=== PATIENT | male | born 1955 | race Caucasian/White ===

== ENCOUNTER 2020-10-28 16:23 | Inpatient (IN) | payer OTHER, MEDICARE, SELFPAY ==
--- NOTE | ~2020-10-28 | XR_ITS ---
XR hand BI arthritis min 3V DATE: 10/29/2020 18:17 INDICATION: Pain and swelling of both hands TECHNIQUE: 4 views of each hand COMPARISON: None FINDINGS: There is right third metacarpophalangeal joint space narrowing and prominent spurring of th e head of the third metacarpal, consistent with osteoarthritis. No fracture, dislocation, periosteal reaction or bone destruction or erosive change of either hand is noted. No chondrocalcinosis. 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
--- NOTE | ~2020-10-28 | MR_ITS ---
EXAMINATION: MR brain/brain stem wo/w con EXAM DATE: 11/01/2020 12:07 INDICATION: chronic thalamic infarct, LUPUS and CLL . TECHNIQUE: Magnetic resonance imaging (MRI) of the brain/brain stem obtained without contrast. Sagit vitaliy T1, axial diffusion, gradient echo (T2*), T1, T2, FLAIR sequences obtained. Patient was then inj ected with 14 cc intravenous Multihance contrast. Axial and coronal postcontrast T1 weighted sequence s obtained. Correlation is made to head CT from yesterday. FINDINGS: There are no areas of restricted diffusion to suggest acute infarction. There is no acute hemorrhage seen on the T2*, a hemosiderin sensitive sequence. No intraparenchymal brain mass lesion. There is mild periventricular and subcortical T2/FLAIR signal hyperintensity, nonspecific but probab ly related to small vessel ischemic disease (microangiopathy). There is mild prominence of the cere bral sulci and ventricles, and moderate cerebellar atrophy. There are no extra-axial collections. Flow voids are seen in the cerebral arteries on the T2-weighted sequences consistent with their expec estuardo patency. The orbits are unremarkable. Soft tissue is unremarkable. There are no areas of abnor mal enhancement on the postcontrast images. No IMPRESSION: 1. No acute intracranial findings. 2. Mild cerebral, moderate cerebellar atrophy. Reviewed, dictated and finalized at location A.
--- NOTE | ~2020-10-28 | XR_ITS ---
EXAMINATION: XR chest 2V EXAM DATE: 10/29/2020 00:33 INDICATION: hyponatremia. TECHNIQUE: Frontal and lateral projections of the chest obtained and reviewed. There is no prior yane dy for comparison. FINDINGS: The lungs are clear. There are no pleural effusions. The cardiomediastinal silhouette is within normal limits. There is no pneumothorax suspected. The bones and soft tissues are unremarkab le. IMPRESSION: No acute cardiopulmonary findings. Reviewed, dictated and finalized at location A.
--- NOTE | ~2020-10-28 | CT_ITS ---
EXAMINATION: CT brain wo con DATE: 10/31/2020 18:57 INDICATION: Altered mental state TECHNIQUE: Computed tomography (CT) of the head was performed without intravenous contrast. The mA wa s adjusted according to patient size. Iterative reconstruction technique was employed. Exam dose: 60 5.33 mGy-cm total exam DLP. COMPARISON: None FINDINGS: There is greater than expected cerebral and cerebellar volume loss is present with atrophy. There is a small chronic lacunar infarct of the left thalamus. No intracranial mass lesion or hemorrhage or recent cerebrovascular accident. No midline shift or mas s effects. No subdural or epidural hematoma. No fracture or bone destruction of the cranial vault. Included paranasal sinuses and mastoid air cell s are normally developed and aerated. IMPRESSION: Greater than expected cerebral and cerebellar volume loss Chronic left thalamic lacunar infarct Reviewed, dictated and finalized at Location A. Reviewed, dictated and finalized at location A.
--- NOTE | ~2020-10-28 | US_ITS ---
EXAMINATION: US carotid duplex BI DATE: 11/01/2020 11:50 INDICATION: Infarct of left thalamus. TECHNIQUE: Grayscale, color Doppler, and pulsed Doppler images of the cervical carotid arteries were obtained. The degree of vessel stenosis is placed in one of the following categories: normal, <50%, 5 0-69%, >=70% but less than near-occlusion, near-occlusion, or total occlusion. Note that percent sten osis relative to normal distal artery lumen diameter is indirectly measured from velocity measurement s as described by Jayme, et al. Radiology 2003; 229:340-346. COMPARISON: None. FINDINGS: RIGHT: The right common carotid artery (CCA) peak systolic velocity (PSV) is 76 cm/s. The right internal car otid artery (ICA) PSV is 73 cm/s. The right ICA end-diastolic velocity (EDV) is 23 cm/s. The right IC A/CCA PSV ratio is 1.0. Grayscale and color Doppler images yield an estimate of <50% diameter reducti on from plaque in the ICA. There is antegrade flow in the right vertebral artery. LEFT: The left CCA PSV is 77 cm/s. The left ICA PSV is 72 cm/s. The left ICA EDV is 19 cm/s. The left ICA/C CA PSV ratio is 0.9. Grayscale and color Doppler images yield an estimate of <50% diameter reduction from plaque in the ICA. There is antegrade flow in the left vertebral artery. IMPRESSION: 1. <50% stenosis in the right internal carotid artery. 2. <50% stenosis in the left internal carotid artery. Reviewed, dictated and finalized at location A.
[2020-10-28 16:35] VITALS: BP 120/76; PULSE 95; RESP 18; TEMP 37.1; O2SAT 98
[2020-10-28 21:36] VITALS: BP 138/86; PULSE 66; RESP 16; O2SAT 100
[2020-10-28 22:21] LABS: Hemoglobin 11.5 g/dL (14.0-18.0); Mean Corpuscular HGB Conc 32.9 g/dl (32-36); Mean Corpuscular Volume 88.4 fl (80-100); Mean Platelet Volume 9.1 fl (7.4-10.4); Platelet Count Result 225 k/mm3 (150-375); Red Blood Count 3.96 M/mm3 (4.6-6.20); White Blood Count 21.8 K/mm3 (4.5-10.0)
[2020-10-28 22:28] LABS: Add Urine Microscopic? YES; Appearance Urine Clear (Clear); Bacteria Urine Trace /hpf; Bilirubin Urine Negative (Negative); Blood Urine Negative (Negative); Color Urine Amber (Yellow); Glucose Urine UA Negative (Negative); Ketones Urine Trace mg/dL (Negative); Leukocyte Esterase Ur Negative LEU/UL (Negative); Mucus Urine Rare /lpf; Nitrate Urine Negative (Negative); Protein Urine 1+ mg/dL (Negative); RBC Urine 0-2 /hpf (0-2); Specific Grav Ur 1.021 (1.001-1.035); WBC Urine 0-3 /hpf
--- NOTE | 2020-10-28 22:48 | PC.NURSE ---
Called lab and spoke to Huong to add on Uric [id number]
--- NOTE | 2020-10-28 22:58 | ED.GENADULT ---
HPI - General Adult General Chief complaint: Unspecified Stated complaint: achy, rash, dec appt, recent dx CLL Time Seen by Provider: 10/28/20 21:31 Source: patient History of Present Illness HPI narrative: Patient is a 65 y/o male complaining of diffuse joint ache starting several months ago. He describes his pain aching and rates it as 8/10. There is no alleviating or exacerbating factor. He has some erythematous area on his head, chest and back. He was recently diagnosed with CLL about 5 months ago. He called his doctor's office today and was told to come to ED for full work up. Related Data Home Medications Medication Instructions Recorded Confirmed allopurinol 100 mg PO DAILY 10/29/20 10/29/20 Allergies Allergy/AdvReac Type Severity Reaction Status Date / Time No Known Allergies Allergy Verified 10/28/20 21:45 Review of Systems Constitutional: Constitutional: Denies chills, Denies fever(s), Denies headache(s) and Denies weakness Eyes: Eyes: Denies blurry vision ENT: Denies headache(s) and Denies neck pain Cardiovascular: Cardiovascular: Denies chest pain and Denies dyspnea Respiratory: Respiratory: Denies cough and Denies dyspnea Gastrointestinal: Gastrointestinal: Denies abdominal pain, Denies diarrhea, Denies nausea and Denies vomiting Genitourinary: Genitourinary: Denies hematuria and Denies dysuria Musculoskeletal: Musculoskeletal: Denies back pain, Reports myalgias and Denies neck pain Integumentary/Breasts: Skin/Breast: Reports erythema (on head, chest and back) Neurologic: Denies headache(s) and Denies weakness [facility] Past Medical History Medical History Family hx of colon cancer Family History Family History Father Alcoholism Carcinoma of colon Hypertension Family hx of colon cancer Mother Diabetes mellitus Heart disease Glaucoma Hypertension Thyroid disease Sibling Diabetes mellitus Alcoholism Lymphoma Glaucoma Hypertension Thyroid disease Cerebrovascular accident Social History Social History Smoking status: Never smoker Tobacco type: smokeless tobacco Smokeless tobacco user: chewing tobacco Alcohol intake: current Drinks per week: 6 Substance use: never Gender identity (if verbalized by the patient): Male Spiritual care concerns: No Exam Const: General: no acute distress and well developed Orientation/consciousness: oriented to person, oriented to place, oriented to time and patient oriented x3 HENMT: Head: normocephalic Ears: external ears normal General nose exam: Normal external nose present Eyes: General: appearance normal, both eyes and all related structures Conjunctivae: conjunctivae normal Neck: Neck: normal visual inspection and full ROM Chest: Chest palpation & inspection: normal inspection of the chest and no tenderness Resp: Effort & Inspection: normal respiratory effort Auscultation: clear to auscultation bilaterally Cardio: Rate: regular rate Rhythm: regular rhythm GI: GI Palp: No abdominal tenderness and Yes Soft to palpation Skin: General skin exam: normal color, turgor normal and erythema (on face, chest and back) Neuro: General: oriented to person, oriented to place, oriented to time and patient oriented x3 Cognition (Neuro): normal cognition Extrem: General: normal to inspection, full ROM and no pedal edema Psych: Appearance: grossly normal Mental Status: mental status grossly normal Affect: normal affect Course Consultations Consultation #1: Discussed with Dr. Luis, who agrees to admit. Date: 10/29/20 Time: 00:48 Vital Signs Vital signs: Vital Signs Temperature 37.1 C 10/28/20 16:35 Pulse Rate 95 10/28/20 16:35 Respiratory Rate 18 10/28/20 16:35 Blood Pressure 120/76 10/28/20 16:35 Pulse Oximetry 98 10/28/20 1
[2020-10-28 23:09] LABS: Alanine Aminotransferase 29 U/L (4-50); Albumin Level 2.8 g/dL (3.5-5.1); Alkaline Phosphatase 70 U/L (38-126); Anion Gap 4 mmol/L (8-16); Aspartate Amino Transferase 55 U/L (17-59); Bilirubin,Total 0.6 mg/dL (0.2-1.3); Blood Urea Nitrogen 15 mg/dL (9-20); Calcium 8.3 mg/dL (8.4-10.2); Carbon Dioxide 28 mmol/L (22-30); Chloride 93 mmol/L (98-107); Estimated CRCL calculation 94 ml/min; Estimated Glomerular Filt Rate > 60; Glucose 123 mg/dL (65-110); Potassium 4.2 mmol/L (3.4-5.0); Sodium 125 mmol/L (137-145)
[2020-10-28 23:18] LABS: Uric Acid 3.7 mg/dL (3.5-8.5)
[2020-10-28 23:22] LABS: Band Neutrophils Percent 2 % (0-6); Lymphocytes Absolute Manual 13.08 K/mm3 (1.1-4.5); Monocytes Absolute Manual 0.43 K/mm3 (0.1-0.90); Monocytes Percent Manual 2 % (3-9); Neutrophils Absolute Manual 8.28 K/mm3 (1.3-6.7); Neutrophils Percent Manual 36 % (46-73); Platelet Estimate Adequate (Adequate); Total Cells Counted 100
[2020-10-28 23:23] LABS: Poikilocytosis 1+ (NORMAL); Smudge Cells MODERATE
[2020-10-28 23:36] VITALS: BP 146/85; PULSE 75; RESP 18; O2SAT 100
[2020-10-29] VITALS (112 sets, daily range): BP systolic 149–184; BP diastolic 71–89; PULSE 70–111; RESP 16–33; TEMP 36.4–38.1; O2SAT 95–100; BMI 24.7
--- NOTE | 2020-10-29 00:26 | PC.NURSE ---
Pt to radiology via stretcher at this time.
[2020-10-29] MEDS: SODIUM CHLORIDE 0.9% IV 1,000 ML 100 ML IV CONT ×2 (04:45→14:00)
--- NOTE | 2020-10-29 08:05 | PC.NURSE ---
Pt placed on hospital bed for comfort, quality assurance monitor final in place, assited to bathroom, ambulatory with assist x1.
--- NOTE | 2020-10-29 08:08 | PC.NURSE ---
Called lab per ED charge order about phlebotomy not collecting labs ordered at 0500. Per lab we're like really really short and have no staff and no one to draw and they're probably no even logged in, I'll try and call them. EPD Charge aware.
--- NOTE | 2020-10-29 08:10 | PC.NURSE ---
Updated pt's on plan of care.
--- NOTE | 2020-10-29 09:40 | PM.IMHP ---
H&P: HPI History of Present Illness Date/Time: 10/29/20 09:40 Kalen is a 65 year old gentleman admitted with diffuse joint aching in his hands, this started several months ago, diagnosed with CLL in May 2020, and monitoring labs with Oncologist on regular basis. He has also been sleeping a lot more since July, but much more since this last week. His PCP Dr. Millan instructed him to go to the ED for full work up. Patient has been drinking more water than usual recently, as he has been trying to wean from the beers that he typically drinks. Approximately a year ago he would drink 24 beers a day, and then about a month ago he weaned to 6 beers a day, in the last 3 days he has been down to about 3 beers a day. He has not been eating well and has not had a good appetite. The combination of chronic alcohol use, recent increase in free water consumption, paired with no appetite and very little eating or oral intake, has led to low sodium levels. Continue with NaCl IVFs, encourage oral intake, changed to regular diet, recheck sodium level later today, if sodium level drops further will consult Entomology Teacher. He was recently diagnosed with CLL and reports having skin lesions that developed in recent weeks. They do not itch or hurt him. They are not bleeding or inflamed or pus/fluid filled. They are found along the sides of his face at his hair line, on the upper anterior chest, and on his back. He has been seeing an Oncologist on a regular basis. I have ordered Eucerin to be applied to skin lesions. He has been having chronic hand swelling, pain to his hands, and tingling in his hands. Tried carpal tunnel braces, but stated they caused more pain after wearing than he has if he does nothing. 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 His PCP Dr. Millan has referred Kalen to a video control engineer. His 2nd toe on the right foot has a small superficial abscess that his was very concerned was MRSA. I have ordered a culture of that small abscess, ordered wound care daily with bacitracin and clean/dry dressing. His uric acid level was elevated in May 2020, his PCP diagnosed him with gout, started him on Allopurinol, and his uric acid level is now WNL at 3.7 at this admission. He is losing weight and states that he just does not have an appetite. His feels that he may be depressed as well. I advised that he speak with his Oncologist regarding an appetite stimulator medication and/or his PCP for discussion and/or anti-depressant medication. He may benefit from Megace and/or Lexapro, but will need chcf follow up and monitoring by his PCP on those medications. Chief Complaint: arthralgias, hyponatremia, leukocytosis Review of Systems Constitutional: Constitutional: Reports body ache(s), Denies chills, Reports fatigue, Denies fever(s), Denies headache(s), Reports lethargy and Denies weakness Eyes: Eyes: Denies blurry vision ENT: Reports Normal hearing present, Denies headache(s), Denies epistaxis and Denies neck pain Cardiovascular: Cardiovascular: Denies chest pain, Denies pedal edema, Denies leg edema, Denies lightheadedness and Denies dyspnea Respiratory: Respiratory: Denies chest congestion, Denies cough, Denies hemoptysis, Denies dyspnea, Denies dyspnea on exertion and Denies wheezing Gastrointestinal: Gastrointestinal: Denies abdominal pain, Denies melena, Denies bloating, Denies constipation, Denies diarrhea, Denies nausea, Denies vomiting and Denies hematemesis Genitourinary: Genitourinary: Denies hematuria and Denies dysuria Musculoskeletal: Musculoskeletal: Denies back pain, Reports myalgias, Reports arthralgias, Reports joint swelling, Denies neck pain and Reports stiffness Integumentary/Breasts: Skin/Breast: Reports erythema (on head, chest and back), Reports rash and Reports wounds (2nd to
--- NOTE | 2020-10-29 10:51 | PC.NURSE ---
dAUGHTER AT BEDSIDE, FEEDING PT DANIEL.
--- NOTE | 2020-10-29 11:57 | PC.NURSE ---
Contacted hospitalist group to speak with Tere about pt home medication per pt and family request.
--- NOTE | 2020-10-29 12:45 | PC.NURSE ---
Called Tere hospitalist assigned to pt again, no answer, left message to call back to ed for home medication orders. Also noted that pt sodium has decreased again and pt bp is now elevated. Awaiting call back.
[2020-10-29 12:54] LABS: Anion Gap 7 mmol/L (8-16); Blood Urea Nitrogen 10 mg/dL (9-20); Calcium 7.8 mg/dL (8.4-10.2); Carbon Dioxide 26 mmol/L (22-30); Chloride 91 mmol/L (98-107); Estimated CRCL calculation 111 ml/min; Estimated Glomerular Filt Rate > 60; Glucose 109 mg/dL (65-110); Potassium 4.1 mmol/L (3.4-5.0); Sodium 124 mmol/L (137-145)
--- NOTE | 2020-10-29 13:59 | ADMGEN ---
This patient, Kalen Valle, was admitted to Virtual Bed 3rd Floor-2. Pt being boarded in ED room 7. Patient/family oriented to hospital policies and general routines including ID bracelet, bed and alarms, visiting hours, pain management, procedures, bathroom and other care routines, personal items, smoking policy, room service/diet, and visiting hours. Information on how to activate the Rapid Response Team has been discussed. Patient/Family are encouraged to report perceived risks to care and to ask questions if they do not understand what they are told or what they should do.
--- NOTE | 2020-10-29 14:00 | PC.NURSE ---
Spoke with Hospitalist Tere at this time, she has given order for repeat BMP at 1800 today. Per if sodium drops at all to place order for Bar Finish Operator consult. also states to give pt bag of chips and soda.
--- NOTE | 2020-10-29 14:10 | PC.NURSE ---
PT PROVIDED CHIPS AND A SODA PER MD ORDER.
--- NOTE | 2020-10-29 14:48 | PC.NURSE ---
mEAL TRAY PROVIDED.
--- NOTE | 2020-10-29 14:49 | PC.NURSE ---
AWAITING METOPROLOL DOSE FROM PHARMACY FOR PT BP MED DOSE TODAY.
--- NOTE | 2020-10-29 15:21 | PC.NURSE ---
SPOKE WITH KATE ABOUT PT METOPROLOL, STATES SHE WILL TUBE IT NONI. FAMILY BACK AT BEDSIDE.
[2020-10-29] MEDS: METOPROLOL SUCCINATE EXT REL 25 MG TABCR PO (15:36)
--- NOTE | 2020-10-29 15:37 | PC.NURSE ---
Tere with hospitalist at bedside.
--- NOTE | 2020-10-29 17:05 | PC.NURSE ---
This patient, Kalen Valle, was admitted to [facility] Surg Room 323-01. Patient/family oriented to hospital policies and general routines including ID bracelet, bed and alarms, visiting hours, pain management, procedures, bathroom and other care routines, personal items, smoking policy, room service/diet, and visiting hours. Information on how to activate the Rapid Response Team has been discussed. Patient/Family are encouraged to report perceived risks to care and to ask questions if they do not understand what they are told or what they should do.
[2020-10-29 19:02] LABS: Anion Gap 0 mmol/L (8-16); Blood Urea Nitrogen 11 mg/dL (9-20); Calcium 7.8 mg/dL (8.4-10.2); Carbon Dioxide 30 mmol/L (22-30); Chloride 97 mmol/L (98-107); Estimated CRCL calculation 94 ml/min; Estimated Glomerular Filt Rate > 60; Glucose 105 mg/dL (65-110); Magnesium 1.3 mg/dL (1.6-2.3); Phosphorus 3.1 mg/dL (2.5-4.5); Potassium 4.3 mmol/L (3.4-5.0); Sodium 127 mmol/L (137-145)
[2020-10-29 19:07] LABS: Alanine Aminotransferase 30 U/L (4-50); Albumin Level 2.7 g/dL (3.5-5.1); Alkaline Phosphatase 74 U/L (38-126); Anion Gap 4 mmol/L (8-16); Aspartate Amino Transferase 59 U/L (17-59); Bilirubin,Total 0.4 mg/dL (0.2-1.3); Blood Urea Nitrogen 11 mg/dL (9-20); Calcium 7.8 mg/dL (8.4-10.2); Carbon Dioxide 27 mmol/L (22-30); Chloride 96 mmol/L (98-107); Estimated CRCL calculation 94 ml/min; Estimated Glomerular Filt Rate > 60; Glucose 106 mg/dL (65-110); Iron 26 ug/dL (49-181); Potassium 4.3 mmol/L (3.4-5.0); Sodium 127 mmol/L (137-145)
[2020-10-29 19:23] LABS: Vitamin D 25 Hydroxy 30.9 ng/mL
[2020-10-29 20:17] LABS: Folic Acid 16.8 ng/mL (2.76->20); Vitamin B12 > 1000.0 pg/mL (239-931)
[2020-10-29] MEDS: MAGNESIUM SULF 4 GM/WATER100ML 4 GM/100 ML BAG IVPB (20:38)
[2020-10-30] MEDS: SODIUM CHLORIDE 0.9% IV 1,000 ML 100 ML IV CONT (05:06)
[2020-10-30 06:00] VITALS: BP 158/74; PULSE 82; RESP 20; TEMP 37.4; O2SAT 95
[2020-10-30 06:04] LABS: Basophils Percent Auto 0.1 % (0.2-1.2); Eosinophils Percent Auto 0.1 % (0-4.4); Hematocrit 34.1 % (42.0-52.0); Immature Granulocyte Absolute 0.06 K/mm3 (0.00-0.031); Immature Granulocyte Percent A 0.3 % (0-0.5); Lymphocytes Absolute Auto 12.43 K/mm3 (0.9-3.2); Lymphocytes Percent Auto 68.2 % (18.3-44.2); Mean Corpuscular HGB Conc 32.3 g/dl (32-36); Mean Corpuscular Hemoglobin 28.4 pg (26-34); Mean Corpuscular Volume 88.1 fl (80-100); Monocytes Absolute Auto 2.2 K/mm3 (0.1-0.6); Monocytes Percent Auto 12.1 % (2.6-8.5); Neutrophils Absolute Auto 3.5 K/mm3 (1.3-6.7); Neutrophils Percent Auto 19.2 % (45.5-73.1); Nucleated Red Blood Cells Absolute Auto 0.1 K/mm3 (0.0-0.012); Nucleated Red Blood Cells Perc 0.7 % (0.0-0.2); Platelet Count Result 209 k/mm3 (150-375); Red Blood Count 3.87 M/mm3 (4.6-6.20); White Blood Count 18.2 K/mm3 (4.5-10.0)
[2020-10-30 06:37] LABS: Alanine Aminotransferase 26 U/L (4-50); Albumin Level 2.5 g/dL (3.5-5.1); Alkaline Phosphatase 56 U/L (38-126); Anion Gap 3 mmol/L (8-16); Aspartate Amino Transferase 51 U/L (17-59); Bilirubin,Total 0.7 mg/dL (0.2-1.3); Blood Urea Nitrogen 9 mg/dL (9-20); Calcium 7.1 mg/dL (8.4-10.2); Carbon Dioxide 27 mmol/L (22-30); Chloride 97 mmol/L (98-107); Estimated CRCL calculation 111 ml/min; Estimated Glomerular Filt Rate > 60; Glucose 115 mg/dL (65-110); Magnesium 1.7 mg/dL (1.6-2.3); Potassium 3.9 mmol/L (3.4-5.0); Sodium 127 mmol/L (137-145)
[2020-10-30 08:00] VITALS: BP 156/67; PULSE 74; PULSE 78; RESP 16; TEMP 37.4; O2SAT 94
[2020-10-30] MEDS: POLYSACCHARIDE IRON COMPLEX 150 MG CAPSULE PO (08:21)
[2020-10-30] MEDS: BACITRACIN/POLYMYXIN B OINT 15 GM TUBE 1 APPLIC TOPICAL (08:23)
[2020-10-30 11:07] VITALS: BMI 24.7
[2020-10-30 11:13] LABS: CRP 4.4 mg/dL (<1.0)
[2020-10-30] MEDS: EUCERIN CREAM 120 GM JAR 1 APPLIC TOPICAL (11:56)
[2020-10-30] MEDS: MELOXICAM 7.5 MG TABLET 15 MG PO (11:56)
[2020-10-30 12:00] VITALS: BP 164/76; PULSE 78; PULSE 80; RESP 20; TEMP 36.8; O2SAT 98
[2020-10-30 12:32] LABS: Erythrocyte Sedimentation Rate 100 mm/hr (0-20)
--- NOTE | 2020-10-30 12:48 | PDONCCN ---
HPI - Date of Consult Date/Time: 10/30/20 12:48 Requesting Physician: Carey Cobb PA-C Primary Care Provider: Anup Millan MD - Consult Narrative Reason for consult: Chronic lymphocytic leukemia Narrative: Kalen Valle is a 65 year old male with diagnosis of chronic lymphocytic in [place] me a in May of 2020. He was last seen in the office in August of 2020. Patient now came into the hospital with diffuse musculoskeletal and joint pain. He also developed a rash in his left side of the face back and upper chest without any itching and pain. He denies any fevers chills. He has been eating poorly with no appetite. Labs showed elevated WBC count of 21,000 with hemoglobin of 11.5. Chest x-ray came back negative. Hand x-ray showed osteoarthritis at the right hand. He has being tested for COVID infection and results are pending. Review of Systems - Review of Systems All systems reviewed & are unremarkable except as noted in HPI and bel - Neurologic Reports hearing normal, Reports numbness (bilateral hands), Denies abnormal speech, Denies abnormal gait, Denies behavioral changes, Denies headache(s), Denies weakness [facility] Medical History: Medical History (Last Updated 10/29/20 @ 17:55 by Dayana Heaton NP) Benign hypertension Chronic lymphocytic leukemia dx spring CTS (carpal tunnel syndrome) Elevated lymphocyte count Family hx of colon cancer Gout Impaired fasting glucose Positive CLAUDIA (antinuclear antibody) Prediabetes Family History: Family History (Last Reviewed 10/29/20 @ 17:53 by Dayana Heaton NP) Father Alcoholism Carcinoma of colon Hypertension Family hx of colon cancer Mother Diabetes mellitus Heart disease Glaucoma Hypertension Thyroid disease Sibling Diabetes mellitus Alcoholism Lymphoma Glaucoma Hypertension Thyroid disease Cerebrovascular accident - Social History Social History: Social History (Last Reviewed 10/29/20 @ 17:53 by Dayana Heaton NP) Gender Identity: Gender identity (if verbalized by the patient): Male Alcohol Use: Alcohol intake: current Drinks per week: 6 Substance Use: Substance use: never Others: Spiritual care concerns: No Smoking Status: Smoking status: Never smoker Tobacco type: smokeless tobacco Smokeless tobacco user: chewing tobacco Meds Home Medications Medication Instructions Recorded Confirmed Type metoprolol succinate 25 mg 25 mg PO DAILY #90 tablet 05/28/20 10/29/20 Rx tablet,extended release 24 hr meloxicam 15 mg tablet See Rx Instructions .ROUTE 08/13/20 10/29/20 Rx .COMPLEX #90 tablet allopurinol 100 mg PO DAILY 10/29/20 10/29/20 History Allergies Allergy/AdvReac Type Severity Reaction Status Date / Time No Known Allergies Allergy Verified 10/28/20 21:45 Results - Labs CBC & Chem 7: 10/30/20 05:32 10/30/20 05:32 Labs: Short CBC 10/30/20 Range/Units 05:32 WBC 18.2 H (4.5-10.0) K/mm3 Hgb 11.0 L (14.0-18.0) g/dL Hct 34.1 L (42.0-52.0) % Plt Count 209 (150-375) k/mm3 BMP 10/29/20 10/29/20 10/29/20 08:31 18:28 18:28 Sodium 124 L 127 L 127 L Potassium 4.1 4.3 4.3 Chloride 91 L 97 L 96 L Carbon Dioxide 26 30 27 BUN 10 D 11 11 Creatinine 0.50 L 0.60 L 0.60 L Glucose 109 105 106 Calcium 7.8 L 7.8 L 7.8 L 10/30/20 05:32 Sodium 127 L Potassium 3.9 Chloride 97 L Carbon Dioxide 27 BUN 9 Creatinine 0.50 L Glucose 115 H Calcium 7.1 L Liver Function 10/29/20 10/30/20 Range/Units 18:28 05:32 Total Bilirubin 0.4 0.7 (0.2-1.3) mg/dL AST 59 51 (17-59) U/L ALT 30 26 (4-50) U/L Alkaline Phosphatase 74 56 (38-126) U/L Albumin 2.7 L 2.5 L (3.5-5.1) g/dL Assessment and Plan - Additional Plan Chronic lymphocytic leukemia. Patient was diagnosed recently in May of 2020. He had no indication for treatment. On my examinat
--- NOTE | 2020-10-30 15:24 | PM.IMPN ---
Progress Note: A&P Assessment and Plan (1) Lupus (systemic lupus erythematosus): Code(s): M32.9 - Systemic lupus erythematosus, unspecified Status: Acute Assessment and Plan: Studies back in May are consistent with lupus -patient has a chemical maker appointment with Dr. Shoaib Ngo at [facility] on 12/30/20 -he has taken prednisone in the past which has really improved his arthralgias -I suspect his joint pain is consistent with lupus. His fever and rash could also be a part of this although the rash does not appear to be the typical lupus rash. -spoke with Dr. Ngo who recommended prednisone taper 30 mg x 3 days, 20 mg x 3 days, 10 mg x 3 days (2) Hyponatremia: Code(s): E87.1 - Hypo-osmolality and hyponatremia Status: Acute Assessment and Plan: Last sodium 127 -likely due to excessive free water intake. The states the patient used to drink 6 beers a day in the last few days he has not been drinking any beer but replaced it with water -she does not know exact numbers but throughout the summer on routine labs the patient was also noted to be hyponatremic -looks like he had a normal sodium last May and June -will order urine sodium and osmolality and consult Nephrology -IV fluids stopped at 10:40am and at 3:30pm they were still running at bedside. I notified RN. -consider fluid restriction depending on urine sodium (3) Gout: Qualifiers: Gout site: hand Gout etiology: unspecified cause Chronicity: acute Laterality: unspecified laterality Qualified Code(s): M10.9 - Gout, unspecified Code(s): M10.9 - Gout, unspecified Status: Acute Assessment and Plan: Uric acid level is WNL at 3.7 -No evidence of acute gout on exam (4) Impaired fasting glucose: Code(s): R73.01 - Impaired fasting glucose Status: Acute Assessment and Plan: Patient and aware of patient having diagnosis of pre diabetes and elevated A1c of 6.4 (5) Benign hypertension: Code(s): I10 - Essential (primary) hypertension Status: Acute Assessment and Plan: last bp 164/76 -Continue metorpolol, stop IV fluids (6) Arthralgia: Code(s): M25.50 - Pain in unspecified joint Status: Acute Assessment and Plan: Likely due to lupus -start abx as above -Xray show no bony destruction but does show arthritis -continue meloxicam (7) Chronic lymphocytic leukemia: Code(s): C91.10 - Chronic lymphocytic leukemia of B-cell type not having achieved remission Status: Acute Assessment and Plan: CLL -Ricardo consulted, no indication for tx at this time due to stable labs -he is checking immunoglobulin level (8) CTS (carpal tunnel syndrome): Code(s): G56.00 - Carpal tunnel syndrome, unspecified upper limb Status: Acute Assessment and Plan: continue meloxicam (9) Skin lesions: Code(s): L98.9 - Disorder of the skin and subcutaneous tissue, unspecified Status: Acute Assessment and Plan: Facial rash with fever -keflex started due to immunocompromised state and fever -will need biopsy if does not improve with abx and steroids (10) Person under investigation for COVID-19: Code(s): Z20.822 - Contact with and (suspected) exposure to COVID-19 Status: Acute Assessment and Plan: Pt with cough and fever -PCR pending -vaccinated in apr 2020 (11) Fever: Code(s): R50.9 - Fever, unspecified Status: Acute Assessment and Plan: As above -No PNA or evidence of infection on the UA -blood cx no growth to date -pt has a erythematous spot on his right bunion that does not look infected. Time Spent With Patient Time with patient: 25 - 35 minutes Subjective Date/time seen: 10/30/20 15:24 Interval history: Pt is a 65-year-old male here for fever, hyponatremia and rash. Patient was seen today and state
[2020-10-30 16:00] VITALS: BP 153/65; PULSE 101; PULSE 115; RESP 20; TEMP 37.5; O2SAT 96
--- NOTE | 2020-10-30 16:38 | PM.CNNEP ---
Assessment and Plan Assessment and plan (1) Hyponatremia: Code(s): E87.1 - Hypo-osmolality and hyponatremia Status: Acute Assessment and Plan: suspect multifactorial etiology: - component of beer potomania - recent excessie free water intake - prerenal factors (poor appetite + poor oral intake) - malignancy(?) continue normal saline but d/c if sodium drops any further start free water restriction goal of therapy is a rate of change of 4 - 6mmol/L (but not to exceed 8mmol/L) in 24 hours for completeness, check cortisol, TSH, SPEP and UPEP, and kappa/lamda ratio no need for 3% saline at this time follow trend of repeat sodium levels Will continue to follow. History of Present Illness Reason for Consult Consult date: 10/30/20 Reason for consult: hyponatremia Chief Complaint Chief complaint: Hyponatremia History of Present Illness Narrative: The patient is a 65 year old male with a past medical history as outlined below who presented to [facility] ER due to worsening generalized weakness and fatigue at the advice of his PCP. The patient was recently diagnosed CLL in May of 2000. since that time, he has been noted to be sleeping a lot more than usual and more so in the last week. Due to this change in his condition, he called his primary care physician is thought that with his complex medical history including that recent diagnosis of CLL, he should come to the ER for further evaluation for fear of possible complications of this condition with regard to anemia versus possible progression of disease. Workup and evaluation emergency room demonstrated the patient to be hemodynamically stable and routine blood test demonstrated labs consistent with his known history of CLL with an elevated white blood cell count but his chemistry was significant for a low sodium level of 124. He had no other critical electrolyte abnormalities and his kidney function was well within normal limits. Given his constellation of symptoms and his past medical history as outlined, he was admitted the hospital for further evaluation therapy. Since admission, he has been getting gentle normal saline IV fluids with some improvement in his overall sodium level. Aside from the generalized weakness and fatigue, he does not appear to have any other neurologic sequelae a with regard to his low sodium level in the form of headaches, dizziness, lightheadedness, seizure activity, syncope, or altered mental status. Renal consultation was requested due to his a for mentioned acute hyponatremia. From review of his records, his last sodium prior to this admission in early October of 2020 was 131 millimoles per L. prior to that, his sodium level was in the normal range of 137-141 millimoles per L. on further discussion with the patient, he does admit that he has been drinking more water than usual recently as he has been trying to substitute this for his excessive alcohol intake with regard to be years. He used to drink about 24 beers a day but then cut back to about six beers a day a month ago and the last three days he has been down to three beers a day. He also reports poor oral intake and poor appetite for last several days as well. Currently, at the time my visit, he appears to be in no acute distress. Review of Systems Review of Systems: As per HPI. [facility] Past Medical History Medical History (Updated 11/06/20 @ 17:00 by Anup Millan MD) Benign hypertension Chronic lymphocytic leukemia dx spring CTS (carpal tunnel syndrome) Family hx of colon cancer Gout Impaired fasting glucose Positive CLAUDIA (antinuclear antibody) Prediabetes Family History Family History Father Alcoholism Carcinoma of colon Hypertension Family hx of colon cancer Mother Diabetes mellitus Heart disease Glaucoma Hypertension Th
[2020-10-30] MEDS: ceFAZolin 500 MG in DEXTROSE 5% IN WATER 50 ML 100 MG IVPB ×2 (17:14→21:05)
[2020-10-30] MEDS: predniSONE 20 MG, predniSONE 10 MG 30 MG PO (17:15)
[2020-10-30 17:59] LABS: Alanine Aminotransferase 26 U/L (4-50); Albumin Level 2.5 g/dL (3.5-5.1); Alkaline Phosphatase 56 U/L (38-126); Anion Gap 5 mmol/L (8-16); Aspartate Amino Transferase 56 U/L (17-59); Bilirubin,Total 0.6 mg/dL (0.2-1.3); Blood Urea Nitrogen 10 mg/dL (9-20); Calcium 7.1 mg/dL (8.4-10.2); Carbon Dioxide 26 mmol/L (22-30); Chloride 93 mmol/L (98-107); Estimated CRCL calculation 111 ml/min; Estimated Glomerular Filt Rate > 60; Glucose 180 mg/dL (65-110); Sodium 124 mmol/L (137-145)
[2020-10-30 18:34] LABS: SARS-CoV-2 RNA PCR Negative
[2020-10-30 19:32] LABS: Creatinine Urine 62.6 mg/dL
[2020-10-30 20:00] VITALS: BP 164/86; PULSE 84; PULSE 88; PULSE 89; RESP 18; TEMP 38; O2SAT 94; O2SAT 95
[2020-10-30 20:06] LABS: Sodium Urine Random 106 meq/L
[2020-10-30 21:15] LABS: Sodium 122 mmol/L (137-145)
--- NOTE | 2020-10-30 22:10 | PC.NURSE ---
Called Dr Whyte 2054 Na result of 122,reviewed previous Na at 1730 of 124. Informed of temp this evening 100.4 and scheduled IV antibiotic hung. No new orders.
[2020-10-31] VITALS (11 sets, daily range): BP systolic 145–188; BP diastolic 65–90; PULSE 67–96; RESP 16–20; TEMP 36.3–36.9; O2SAT 95–97
[2020-10-31] MEDS: ceFAZolin 500 MG in DEXTROSE 5% IN WATER 50 ML 100 MG IVPB ×3 (05:20→21:19)
[2020-10-31 06:22] LABS: Hemoglobin 11.2 g/dL (14.0-18.0); Mean Corpuscular HGB Conc 32.9 g/dl (32-36); Mean Corpuscular Hemoglobin 28.9 pg (26-34); Mean Corpuscular Volume 87.9 fl (80-100); Mean Platelet Volume 8.7 fl (7.4-10.4); Platelet Count Result 214 k/mm3 (150-375); Red Blood Count 3.87 M/mm3 (4.6-6.20); White Blood Count 22.5 K/mm3 (4.5-10.0)
[2020-10-31 07:15] LABS: Cortisol Random 5.54 ug/dL
[2020-10-31] MEDS: POLYSACCHARIDE IRON COMPLEX 150 MG CAPSULE PO (08:37)
[2020-10-31] MEDS: predniSONE 20 MG, predniSONE 10 MG 30 MG PO (08:38)
[2020-10-31] MEDS: METOPROLOL SUCCINATE EXT REL 25 MG TABCR PO (08:38)
[2020-10-31] MEDS: BACITRACIN/POLYMYXIN B OINT 15 GM TUBE 1 APPLIC TOPICAL (08:38)
[2020-10-31] MEDS: MELOXICAM 7.5 MG TABLET 15 MG PO (08:38)
[2020-10-31] MEDS: EUCERIN CREAM 120 GM JAR 1 APPLIC TOPICAL (08:42)
[2020-10-31 10:19] LABS: Alanine Aminotransferase 27 U/L (4-50); Albumin Level 2.6 g/dL (3.5-5.1); Alkaline Phosphatase 50 U/L (38-126); Anion Gap 4 mmol/L (8-16); Aspartate Amino Transferase 48 U/L (17-59); Bilirubin,Total 0.4 mg/dL (0.2-1.3); Blood Urea Nitrogen 13 mg/dL (9-20); Calcium 7.7 mg/dL (8.4-10.2); Carbon Dioxide 26 mmol/L (22-30); Chloride 98 mmol/L (98-107); Estimated CRCL calculation 111 ml/min; Estimated Glomerular Filt Rate > 60; Glucose 159 mg/dL (65-110); Potassium 4.2 mmol/L (3.4-5.0); Sodium 128 mmol/L (137-145)
--- NOTE | 2020-10-31 14:32 | PM.PNNEP ---
Progress Note: A&P Assessment and Plan (1) Hyponatremia: Code(s): E87.1 - Hypo-osmolality and hyponatremia Status: Acute Assessment and Plan: suspect multifactorial etiology: - component of beer potomania - recent excessie free water intake - prerenal factors (poor appetite + poor oral intake) - malignancy(?) off normal saline IVFs on free water restriction goal of therapy is a rate of change of 4 - 6mmol/L (but not to exceed 8mmol/L) in 24 hours TSH okay and cortisol lowish (but on steroids already); UPEP/SPEP pending no need for 3% saline at this time follow trend of repeat sodium levels Will continue to follow. Subjective Date/time seen: 10/31/20 14:32 No apparent distress voiced at the time of my visit; no events overnight or earlier this AM; sodium appears to be improving with current interventions/therapy; no other complaints to report. Exam Narrative: General: WD/WN male in NAD Heart: normal S1 and S2; no rub Lungs: clear to auscultation Abdomen: soft, nontender, nondistended, positive bowel sounds Extremities: no cyanosis or clubbing; no edema Skin: warm and dry Objective Data Vital Signs Vital Signs: Vital Signs Temp Pulse Resp BP Pulse Ox 10/31/20 14:00 36.3 C L 83 16 145/65 H 97 10/31/20 12:00 81 10/31/20 10:14 96 10/31/20 08:38 81 10/31/20 08:00 96 10/31/20 06:00 36.6 C 81 16 158/77 H 96 10/31/20 04:00 74 10/31/20 00:00 36.6 C 84 18 158/74 H 95 10/30/20 20:00 38.0 C H 84 18 164/86 H 95 Intake/Output Intake/Output: Intake & Output 10/28/20 10/29/20 10/30/20 10/31/20 23:59 23:59 23:59 23:59 Intake Total 1100 3120 760 Output Total 0 100 600 Balance 1100 3020 160 Meds/Results Medications: Active Medications Generic Name Dose Route Start Last Admin Trade Name Freq PRN Reason Stop Dose Admin Bacitracin/Polymyxin B Sulfate 1 applic 10/30/20 09:00 10/31/20 08:38 Bacitracin/Polymyxin B Oint 15 Gm Tube TOPICAL 1 applic DAILY [facility] Administration Cefazolin Sodium 500 mg/ 50 mls @ 100 mls/hr 10/30/20 15:20 10/31/20 13:38 Dextrose IVPB Infused Q8HR [facility] Infusion Meloxicam 15 mg 10/30/20 10:45 10/31/20 08:38 Meloxicam 7.5 Mg Tablet PO 15 mg DAILY@0800 [facility] Administration Metoprolol Succinate 25 mg 10/30/20 09:00 10/31/20 08:38 Metoprolol Succinate Ext Rel 25 Mg Tabcr PO 25 mg DAILY [facility] Administration Multi-Ingred Cream/Lotion/Oil/Oint 1 applic 10/29/20 09:00 10/31/20 08:42 Eucerin Cream 120 Gm Jar TOPICAL 1 applic DAILY [facility] Administration Pantoprazole Sodium 40 mg 10/31/20 16:30 Pantoprazole 40 Mg Tablet PO QAM [facility] Polysaccharide Iron Complex 150 mg 10/30/20 08:00 10/31/20 08:37 Polysaccharide Iron Complex 150 Mg Capsule PO 150 mg DAILY@0800 [facility] Administration Prednisone 20 mg/ Prednisone 30 mg 10/30/20 15:10 10/31/20 08:38 10 mg PO 30 mg DAILY@0800 [facility] Administration Radiology Results: ITS Impressions Chest X-Ray 10/29/20 06:59 IMPRESSION: No acute cardiopulmonary findings. 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
[2020-10-31 15:38] LABS: Sodium 127 mmol/L (137-145)
--- NOTE | 2020-10-31 16:30 | PM.IMPN ---
Progress Note: A&P Assessment and Plan (1) Lupus (systemic lupus erythematosus): Code(s): M32.9 - Systemic lupus erythematosus, unspecified Status: Acute Assessment and Plan: Studies back in May are consistent with lupus -patient has a office asst appointment with Dr. Shoaib Ngo at [facility] on 12/30/20 -he has taken prednisone in the past which has really improved his arthralgias -I suspect his joint pain is consistent with lupus which is already improving with tx. His fever and rash could also be a part of this although the rash does not appear to be the typical lupus rash. -spoke with Dr. Ngo who recommended prednisone taper 30 mg x 3 days, 20 mg x 3 days, 10 mg x 3 days (2) Hyponatremia: Code(s): E87.1 - Hypo-osmolality and hyponatremia Status: Acute Assessment and Plan: Last sodium 127 -likely due to excessive free water intake. The states the patient used to drink 6 beers a day in the last few days he has not been drinking any beer but replaced it with water -she does not know exact numbers but throughout the summer on routine labs the patient was also noted to be hyponatremic -looks like he had a normal sodium last May and June -urine sodium high -nephrology consulted, appreciate their recommendations. labs have been orderd (3) Gout: Qualifiers: Gout site: hand Gout etiology: unspecified cause Chronicity: acute Laterality: unspecified laterality Qualified Code(s): M10.9 - Gout, unspecified Code(s): M10.9 - Gout, unspecified Status: Acute Assessment and Plan: Uric acid level is WNL at 3.7 -No evidence of acute gout on exam (4) Impaired fasting glucose: Code(s): R73.01 - Impaired fasting glucose Status: Acute Assessment and Plan: Patient and aware of patient having diagnosis of pre diabetes and elevated A1c of 6.4 (5) Benign hypertension: Code(s): I10 - Essential (primary) hypertension Status: Acute Assessment and Plan: last bp 145/65 -Continue metorpolol (6) Arthralgia: Code(s): M25.50 - Pain in unspecified joint Status: Acute Assessment and Plan: Likely due to lupus -continue steroids -Xray show no bony destruction but does show arthritis -continue meloxicam (7) Chronic lymphocytic leukemia: Code(s): C91.10 - Chronic lymphocytic leukemia of B-cell type not having achieved remission Status: Acute Assessment and Plan: CLL -Ricardo consulted, no indication for tx at this time due to stable labs -will check peripheral smear -he is checking immunoglobulin level (8) CTS (carpal tunnel syndrome): Code(s): G56.00 - Carpal tunnel syndrome, unspecified upper limb Status: Acute Assessment and Plan: continue meloxicam (9) Skin lesions: Code(s): L98.9 - Disorder of the skin and subcutaneous tissue, unspecified Status: Acute Assessment and Plan: Facial rash with fever -keflex started due to immunocompromised state and fever -steroids started, will monitor for improvement -spoke with Dr. Davalos who agrees to consult for biopsy. (10) Person under investigation for COVID-19: Code(s): Z20.822 - Contact with and (suspected) exposure to COVID-19 Status: Acute Assessment and Plan: PCR negative, ruled out (11) Fever: Code(s): R50.9 - Fever, unspecified Status: Acute Assessment and Plan: As above -No PNA or evidence of infection on the UA -blood cx no growth to date -pt has a erythematous spot on his right bunion that does not look infected -abx started for rash although unsure if this is the etiology either -could be due to lupus or CLL Subjective Date/time seen: 10/31/20 16:30 Interval history: Pt is a 65-year-old male here for fever, hyponatremia and rash. Patient was seen today and states he feels much better.
[2020-10-31] MEDS: PANTOPRAZOLE 40 MG TABLET PO (17:43)
[2020-11-01] MEDS: ceFAZolin 500 MG in DEXTROSE 5% IN WATER 50 ML 100 MG IVPB ×2 (05:54→14:10)
[2020-11-01 06:00] VITALS: BP 158/83; PULSE 75; RESP 18; TEMP 37; O2SAT 95
[2020-11-01 07:15] LABS: Hematocrit 34.3 % (42.0-52.0); Hemoglobin 10.9 g/dL (14.0-18.0); Mean Corpuscular HGB Conc 31.8 g/dl (32-36); Mean Corpuscular Hemoglobin 28.4 pg (26-34); Mean Corpuscular Volume 89.3 fl (80-100); Mean Platelet Volume 9.1 fl (7.4-10.4); Platelet Count Result 232 k/mm3 (150-375); Red Blood Count 3.84 M/mm3 (4.6-6.20); Red Cell Distribution Width 13.1 % (11.5-14.5); White Blood Count 26.7 K/mm3 (4.5-10.0)
[2020-11-01 07:45] LABS: Anion Gap 5 mmol/L (8-16); Blood Urea Nitrogen 16 mg/dL (9-20); CRP 3.1 mg/dL (<1.0); Calcium 7.7 mg/dL (8.4-10.2); Carbon Dioxide 27 mmol/L (22-30); Chloride 99 mmol/L (98-107); Estimated CRCL calculation 111 ml/min; Estimated Glomerular Filt Rate > 60; Glucose 114 mg/dL (65-110); Potassium 3.6 mmol/L (3.4-5.0); Sodium 131 mmol/L (137-145)
--- NOTE | 2020-11-01 08:21 | WPDCN ---
Assessment and Plan Assessment and plan (1) Lupus (systemic lupus erythematosus): Code(s): M32.9 - Systemic lupus erythematosus, unspecified Status: Acute Assessment and Plan: Excisional skin biopsy at the bedside (2) Chronic lymphocytic leukemia: Code(s): C91.10 - Chronic lymphocytic leukemia of B-cell type not having achieved remission Status: Acute HPI Data of Consult Date/Time: 11/01/20 08:21 Requesting Physician: Carey Cobb PA-C Primary Care Provider: Anup Millan MD Consult Narrative Narrative: Kalen Valle is a 65 year old male Admitted to the hospitalist service with Myalgia, unspecified rash and elevated WBC with lymphocytosis. 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 He also has serology suggesting Lupus. He in vaccinated against Covid-19. I am consulted to take a cutaneous biopsy from the area of the rash. Platelets are normal. [facility] Past Medical History Medical History (Updated 10/30/20 @ 15:35 by Carey Cobb PA-C) Benign hypertension Chronic lymphocytic leukemia dx spring CTS (carpal tunnel syndrome) Family hx of colon cancer Gout Impaired fasting glucose Positive CLAUDIA (antinuclear antibody) Prediabetes Family History Family History Father Alcoholism Carcinoma of colon Hypertension Family hx of colon cancer Mother Diabetes mellitus Heart disease Glaucoma Hypertension Thyroid disease Sibling Diabetes mellitus Alcoholism Lymphoma Glaucoma Hypertension Thyroid disease Cerebrovascular accident Social History Social History Smoking status: Never smoker Tobacco type: smokeless tobacco Smokeless tobacco user: chewing tobacco Alcohol intake: current Drinks per week: 6 Substance use: never Gender identity (if verbalized by the patient): Male Spiritual care concerns: No Meds Home Medications and Allergies Home Medications Medication Instructions Recorded Confirmed Type metoprolol succinate 25 mg 25 mg PO DAILY #90 tablet 05/28/20 10/29/20 Rx tablet,extended release 24 hr meloxicam 15 mg tablet See Rx Instructions .ROUTE 08/13/20 10/29/20 Rx .COMPLEX #90 tablet allopurinol 100 mg PO DAILY 10/29/20 10/29/20 History Allergies Allergy/AdvReac Type Severity Reaction Status Date / Time No Known Allergies Allergy Verified 10/28/20 21:45 Vital Signs Vital Signs - 24 hr 10/31/20 08:38 10/31/20 10:14 10/31/20 12:00 Temperature Pulse Rate 81 81 Respiratory Rate Blood Pressure Pulse Oximetry 96 10/31/20 14:00 10/31/20 16:00 10/31/20 20:00 Temperature 97.4 F L Pulse Rate 83 72 67 Respiratory Rate 16 20 Blood Pressure 145/65 H Pulse Oximetry 97 97 10/31/20 22:00 11/01/20 06:00 Temperature 98.4 F 98.6 F Pulse Rate 67 75 Respiratory Rate 20 18 Blood Pressure 188/90 H 158/83 H Pulse Oximetry 97 95 Results Labs CBC & Chem 7: 11/01/20 06:53 11/01/20 06:53 Labs: Short CBC 11/01/20 Range/Units 06:53 WBC 26.7 H (4.5-10.0) K/mm3 Hgb 10.9 L (14.0-18.0) g/dL Hct 34.3 L (42.0-52.0) % Plt Count 232 (150-375) k/mm3 BMP 10/31/20 10/31/20 11/01/20 06:07 15:08 06:53 Sodium 128 L 127 L 131 L Potassium 4.2 3.6 Chloride 98 99 Carbon Dioxide 26 27 BUN 13 16 Creatinine 0.50 L 0.50 L Glucose 159 H 114 H Calcium 7.7 L 7.7 L Liver Function 10/31/20 Range/Units 06:07 Total Bilirubin 0.4 (0.2-1.3) mg/dL AST 48 (17-59) U/L ALT 27 (4-50) U/L Alkaline Phosphatase 50 (38-126) U/L Albumin 2.6 L (3.5-5.1) g/dL
[2020-11-01] MEDS: MELOXICAM 7.5 MG TABLET 15 MG PO (09:04)
[2020-11-01 09:05] VITALS: PULSE 67
[2020-11-01] MEDS: METOPROLOL SUCCINATE EXT REL 25 MG TABCR PO (09:05)
[2020-11-01] MEDS: predniSONE 20 MG, predniSONE 10 MG 30 MG PO (09:05)
[2020-11-01] MEDS: POLYSACCHARIDE IRON COMPLEX 150 MG CAPSULE PO (09:05)
[2020-11-01] MEDS: BACITRACIN/POLYMYXIN B OINT 15 GM TUBE 1 APPLIC TOPICAL (09:05)
[2020-11-01] MEDS: PANTOPRAZOLE 40 MG TABLET PO (09:05)
[2020-11-01] MEDS: EUCERIN CREAM 120 GM JAR 1 APPLIC TOPICAL (09:05)
[2020-11-01 09:26] LABS: Lymphocytes Absolute Manual 16.82 K/mm3 (1.1-4.5); Monocytes Percent Manual 3 % (3-9); Neutrophils Percent Manual 34 % (46-73); Total Cells Counted 100
[2020-11-01 09:27] LABS: Platelet Estimate Adequate (Adequate)
[2020-11-01 09:28] LABS: Smudge Cells MODERATE
[2020-11-01] MEDS: POTASSIUM CHLORIDE 20 MEQ TABLET 40 MEQ PO (10:14)
[2020-11-01 10:26] VITALS: BP 159/108; PULSE 80; RESP 12; TEMP 36.8; O2SAT 96
--- NOTE | 2020-11-01 10:44 | P.PNNP_ITS ---
Progress Note: A&P Assessment and Plan (1) Hyponatremia: Code(s): E87.1 - Hypo-osmolality and hyponatremia Status: Acute Assessment and Plan: * suspect multifactorial etiology: - component of beer potomania - recent excessive free water intake - prerenal factors (poor appetite + poor oral intake) - malignancy(?) * off normal saline IVFs * on free water restriction * goal of therapy is a rate of change of 4 - 6mmol/L (but not to exceed 8mmol/L) in 24 hours * TSH okay and cortisol lowish (but on steroids already); UPEP/SPEP pending * no need for 3% saline at this time * follow trend of repeat sodium levels Will continue to follow. Subjective Date/time seen: 11/01/20 10:44 No apparent distress to report; no new issues/events overnight or earlier this AM; sodium level continues to improve with conservative therapy; no other complaints voiced at the time of my visit. Exam Narrative: General: WD/WN male in NAD Heart: normal S1 and S2; no rub Lungs: clear to auscultation Abdomen: soft, nontender, nondistended, positive bowel sounds Extremities: no cyanosis or clubbing; no edema Skin: warm and intact Objective Data Vital Signs Vital Signs: Vital Signs Temp Pulse Resp BP Pulse Ox 11/01/20 10:26 36.8 C 80 12 159/108 H 96 11/01/20 09:05 67 11/01/20 06:00 37.0 C 75 18 158/83 H 95 10/31/20 22:00 36.9 C 67 20 188/90 H 97 10/31/20 20:00 67 20 97 10/31/20 16:00 72 Intake/Output Intake/Output: Intake & Output 10/29/20 10/30/20 10/31/20 11/01/20 23:59 23:59 23:59 23:59 Intake Total 1100 3120 1400 270 Output Total 0 100 600 600 Balance 1100 3020 800 -330 Meds/Results Medications: Active Medications Generic Name Dose Route Start Last Admin Trade Name Freq PRN Reason Stop Dose Admin Bacitracin/Polymyxin B Sulfate 1 applic 10/30/20 09:00 11/01/20 09:05 Bacitracin/Polymyxin B Oint 15 Gm Tube TOPICAL 1 applic DAILY [facility] Administration Cefazolin Sodium 500 mg/ 50 mls @ 100 mls/hr 10/30/20 15:20 11/01/20 14:10 Dextrose IVPB 100 mls/hr Q8HR [facility] Administration Magnesium Oxide 400 mg 11/02/20 09:00 Magnesium Oxide 400 Mg Tablet PO DAILY [facility] Meloxicam 15 mg 10/30/20 10:45 11/01/20 09:04 Meloxicam 7.5 Mg Tablet PO 15 mg DAILY@0800 [facility] Administration Metoprolol Succinate 25 mg 10/30/20 09:00 11/01/20 09:05 Metoprolol Succinate Ext Rel 25 Mg Tabcr PO 25 mg DAILY [facility] Administration Miconazole Nitrate 1 applic 11/01/20 21:00 Miconazole 2% Antifungal Ointment 56 Gm TOPICAL HS [facility] Multi-Ingred Cream/Lotion/Oil/Oint 1 applic 10/29/20 09:00 11/01/20 09:05 Eucerin Cream 120 Gm Jar TOPICAL 1 applic DAILY [facility] Administration Pantoprazole Sodium 40 mg 10/31/20 16:30 11/01/20 09:05 Pantoprazole 40 Mg Tablet PO 40 mg QAM [facility] Administration Polysaccharide Iron Complex 150 mg 10/30/20 08:00 11/01/20 09:05 Polysaccharide Iron Complex 150 Mg Capsule PO 150 mg DAILY@0800 [facility] Administration Prednisone 20 mg/ Prednisone 30 mg 10/30/20 15:10 11/01/20 09
--- NOTE | 2020-11-01 10:44 | PM.PNNEP ---
Progress Note: A&P Assessment and Plan (1) Hyponatremia: Code(s): E87.1 - Hypo-osmolality and hyponatremia Status: Acute Assessment and Plan: suspect multifactorial etiology: - component of beer potomania - recent excessive free water intake - prerenal factors (poor appetite + poor oral intake) - malignancy(?) off normal saline IVFs on free water restriction goal of therapy is a rate of change of 4 - 6mmol/L (but not to exceed 8mmol/L) in 24 hours TSH okay and cortisol lowish (but on steroids already); UPEP/SPEP pending no need for 3% saline at this time follow trend of repeat sodium levels Will continue to follow. Subjective Date/time seen: 11/01/20 10:44 No apparent distress to report; no new issues/events overnight or earlier this AM; sodium level continues to improve with conservative therapy; no other complaints voiced at the time of my visit. Exam Narrative: General: WD/WN male in NAD Heart: normal S1 and S2; no rub Lungs: clear to auscultation Abdomen: soft, nontender, nondistended, positive bowel sounds Extremities: no cyanosis or clubbing; no edema Skin: warm and intact Objective Data Vital Signs Vital Signs: Vital Signs Temp Pulse Resp BP Pulse Ox 11/01/20 10:26 36.8 C 80 12 159/108 H 96 11/01/20 09:05 67 11/01/20 06:00 37.0 C 75 18 158/83 H 95 10/31/20 22:00 36.9 C 67 20 188/90 H 97 10/31/20 20:00 67 20 97 10/31/20 16:00 72 Intake/Output Intake/Output: Intake & Output 10/29/20 10/30/20 10/31/20 11/01/20 23:59 23:59 23:59 23:59 Intake Total 1100 3120 1400 270 Output Total 0 100 600 600 Balance 1100 3020 800 -330 Meds/Results Medications: Active Medications Generic Name Dose Route Start Last Admin Trade Name Freq PRN Reason Stop Dose Admin Bacitracin/Polymyxin B Sulfate 1 applic 10/30/20 09:00 11/01/20 09:05 Bacitracin/Polymyxin B Oint 15 Gm Tube TOPICAL 1 applic DAILY [facility] Administration Cefazolin Sodium 500 mg/ 50 mls @ 100 mls/hr 10/30/20 15:20 11/01/20 14:10 Dextrose IVPB 100 mls/hr Q8HR [facility] Administration Magnesium Oxide 400 mg 11/02/20 09:00 Magnesium Oxide 400 Mg Tablet PO DAILY [facility] Meloxicam 15 mg 10/30/20 10:45 11/01/20 09:04 Meloxicam 7.5 Mg Tablet PO 15 mg DAILY@0800 [facility] Administration Metoprolol Succinate 25 mg 10/30/20 09:00 11/01/20 09:05 Metoprolol Succinate Ext Rel 25 Mg Tabcr PO 25 mg DAILY [facility] Administration Miconazole Nitrate 1 applic 11/01/20 21:00 Miconazole 2% Antifungal Ointment 56 Gm TOPICAL HS [facility] Multi-Ingred Cream/Lotion/Oil/Oint 1 applic 10/29/20 09:00 11/01/20 09:05 Eucerin Cream 120 Gm Jar TOPICAL 1 applic DAILY [facility] Administration Pantoprazole Sodium 40 mg 10/31/20 16:30 11/01/20 09:05 Pantoprazole 40 Mg Tablet PO 40 mg QAM [facility] Administration Polysaccharide Iron Complex 150 mg 10/30/20 08:00 11/01/20 09:05 Polysaccharide Iron Complex 150 Mg Capsule PO 150 mg DAILY@0800 [facility] Administration Prednisone 20 mg/ Prednisone 30 mg 10/30/20 15:10 11/01/20 09:05 10 mg PO 30 mg DAILY@0800 [facility] Administration Radiology Results: ITS Impressions Chest X-Ray 10/29/20 06:59 IMPRESSION: No acute cardiopulmonary findings. 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 <50% stenosis in the right internal carotid artery. 2. <50% stenosis in the left internal carotid artery. Brain MRI 11/01/20 12:50 IMPRESSION: 1. No acute intracranial findings. 2. Mild cerebral, moderate cerebellar atrophy. Labs Labs: Laboratory Tests 11/01/20 06
--- NOTE | 2020-11-01 10:55 | PM.DS ---
DS: Admitting Diagnosis Admitting Diagnosis arthralgia, painful and swollen hands, rash, fatigue, CLL, Lupus, hyponatremia DS: Discharge Diagnosis Discharge Diagnosis (1) Lupus (systemic lupus erythematosus): Code(s): M32.9 - Systemic lupus erythematosus, unspecified Status: Acute Assessment and Plan: Studies back in May are consistent with lupus -he has taken prednisone in the past which has really improved his arthralgias -I suspect his joint pain is consistent with lupus which is already improving with steroid tx. - fever and rash could also be a part of Lupus; although the rash does not appear to be the typical lupus rash. -CT brain showed chronic left thalamic lacunar infarcts and greater than normal ceregral and cerebellar volume loss -ordered MRI brain and brain stem:There are no areas of restricted diffusion to suggest acute infarction. There is no acute hemorrhage seen on the T2*, a hemosiderin sensitive sequence. No intraparenchymal brain mass lesion. There is mild periventricular and subcortical T2/FLAIR signal hyperintensity, nonspecific but probably related to small vessel ischemic disease (microangiopathy). There is mild prominence of the cerebral sulci and ventricles, and moderate cerebellar atrophy. There are no extra-axial collections. Flow voids are seen in the cerebral arteries on the T2-weighted sequences consistent with their expected patency. The orbits are unremarkable. Soft tissue is unremarkable. There are no areas of abnormal enhancement on the postcontrast images. 1. No acute intracranial findings.2. Mild cerebral, moderate cerebellar atrophy. - ordered Carotid Doppler US: no stenosis bilaterally. - appreciate Dr. Diaz biopsy of rash today. --patient has a car packer appointment with Dr. Shoaib Ngo at [facility] on 12/30/20 -continue at discharge: Dr. Ngo who recommended prednisone taper 30 mg x 3 days, 20 mg x 3 days, 10 mg x 3 days (2) Hyponatremia: Code(s): E87.1 - Hypo-osmolality and hyponatremia Status: Acute Assessment and Plan: Last sodium 131 -likely due to excessive free water intake. The states the patient used to drink 6 beers a day in the last few days he has not been drinking any beer but replaced it with water -she does not know exact numbers but throughout the summer on routine labs the patient was also noted to be hyponatremic -looks like he had a normal sodium last May and June -urine sodium high -nephrology consulted, appreciate their recommendations. - allopurinol may be contributing to his hyponatremia - held at this time. - not been eating well , not had a good appetite, losing weight, - encourage oral intake, added protein/supplements, discuss appetite stimulator and/or anti-depressant medication with PCP or oncologist - low sodium may be combination of chronic alcohol use, recent increase in free water consumption, paired with no appetite and very little eating or oral intake. (3) Gout: Qualifiers: Chronicity: acute Gout etiology: unspecified cause Gout site: hand Laterality: unspecified laterality Qualified Code(s): M10.9 - Gout, unspecified Code(s): M10.9 - Gout, unspecified Status: Acute Assessment and Plan: His uric acid level was elevated in May 2020 his PCP diagnosed him with gout started him on Allopurinol his uric acid level is now WNL at 3.7 at this admission. -No evidence of acute gout on exam today -continue the allopurinol after prednisone dosing completed, at discharge to continue gout control (4) Impaired fasting glucose: Code(s): R73.01 - Impaired fasting glucose Status: Acute Assessment and Plan: Patient and aware of patient having diagnosis of pre diabetes and elevated A1c of 6.4 patient will need get dietary education and control thru diet (5) Benign hypertension: Code(s): I10 - Essential (primary) hypertension Status: Acute Assessmen
--- NOTE | 2020-11-01 12:56 | W.PM.PROC2 ---
Procedure Note - Detailed Date of Procedure 11/01/20 Pre-op Diagnosis Skin rash Post-op Diagnosis same Procedure Performed Full thickness excisional skin biopsy from the left scapula Surgeon Bautista Diaz MD Anesthesia local Indications Extensive nonpruritic macular rash Description of Procedure Patient verbally consented. He is quite aware of his rash. He lay prone on his bed. I anesthetized a single area on the medial lower scapula on the left side. This is area was prepped with Betadine. A 1 cm full-thickness skin ellipse was incised and sent in formalin to pathology the wound was closed with interrupted 4-0 nylon and a Band-Aid was applied. Patient tolerated this well. The father was marked with the patient's identification and handed to the RN covering the floor at lunch time. Urine Output 600 Drains No Packing No Pathology yes Complications No immediate complications Condition stable Disposition floor
[2020-11-01 15:25] VITALS: BP 145/83; PULSE 72; RESP 14; TEMP 36.8; O2SAT 97
[2020-11-02 11:07] LABS: Vitamin B6 17.5 ng/mL (2.1-21.7)
[2020-11-03 04:38] LABS: Albumin 2.3 g/dL (3.8-4.8); Alpha 1 Globulin 0.4 g/dL (0.2-0.3); Alpha 2 Globulin 0.7 g/dL (0.5-0.9); Beta 1 Globulin 0.3 g/dL (0.4-0.6); Gamma Globulin 1.2 g/dL (0.8-1.7); Protein, Total 5.2 g/dL (6.1-8.1)
[2020-11-03 17:41] LABS: Kappa\\Lambda Light Chains 0.72 (0.26-1.65); Lambda Light Chain 97.9 mg/L (5.7-26.3)
[2020-11-05 05:48] LABS: Creatinine, Random Urine 27 mg/dL (20-320); Total Protein/Creatinine Ratio 333 mg/g creat (22-128)
--- NOTE | 2020-11-08 13:02 | PC.NURSE ---
Skin bx shows superficial acute dermatitis with benign acute ulcer. GMS stain for fungus is negative. JOHN Harvey aware.
== END 2020-11-01 18:25 | disposition home or self-care (01) | DRG 607 ==
LOC: ANHED 23:10 → ANH3MEDSUR 10-29 03:07
PROVIDERS: Internal Medicine Nephrology; Physician Assistant; Admitting Provider Internal Medicine; Emergency Provider Emergency Medicine; PCP Family Medicine; Visit Provider Nurse Practitioner
DX: R21 Rash and other nonspecific skin eruption (principal); E87.1 Hypo-osmolality and hyponatremia; L02.611 Cutaneous abscess of right foot; C91.10 Chronic lymphocytic leukemia of B-cell type not having achieved remission; M32.9 Systemic lupus erythematosus, unspecified; B37.2 Candidiasis of skin and nail; Z20.822 Contact with and (suspected) exposure to COVID-19; M10.9 Gout, unspecified; R73.01 Impaired fasting glucose; G56.00 Carpal tunnel syndrome, unspecified upper limb; I10 Essential (primary) hypertension; F17.220 Nicotine dependence, chewing tobacco, uncomplicated
CPT/HCPCS: 36415; 70450; 70553; 71046; 73130; 80048; 80053; 81001; 82306; 82533; 82570; 82607; 82746; 83540; 83735; 83883; 83930; 83935; 84100; 84155; 84156; 84165; 84166; 84207; 84295; 84300; 84443; 84550; 85025; 85027; 85060; 85652; 86140; 87040; 87070; 87205; 88305; 88312; 93880; 96360; 96361; 96365; 96366; 97161; 97165; 99285; A9270; A9577; C9803; G0378; J0690; J3475; J7030; J7512; U0003; U0005

== ENCOUNTER 2020-11-21 12:14 | Emergency (ER) | payer OTHER, SELFPAY ==
--- NOTE | ~2020-11-21 | CT_ITS ---
EXAMINATION: CTA chest PE abdomen pel DATE: 11/21/2020 15:22 INDICATION: Chest pain, left upper quadrant pain. TECHNIQUE: Computed tomography angiography (CTA) of the chest was performed with 100 mL Omnipaque-350 intravenous contrast timed to evaluate the pulmonary arteries. Coronal maximum intensity projection 3D-reconstructions were created by the technologist. Automated exposure control and iterative reconst ruction technique were employed. Exam dose: 830.90 mGy-cm total exam DLP. COMPARISON: 11/21/2020 portable AP chest FINDINGS: There is diagnostic contrast enhancement of the pulmonary arteries. No pulmonary embolism i s detected. Cardiomegaly. No pericardial effusion. Coronary artery atherosclerotic calcifications. No thoracic ao rtic dissection. No hilar or mediastinal mass lesion or lymphadenopathy. No pulmonary infiltrate or consolidation or pulmonary mass lesion is evident Old healed lower right posterior rib fractures. Scoliosis and degenerative spurring of the thoracic s pine. Degenerative spurring of the lumbar spine. No suspicious osteolytic or osteoblastic lesions. IMPRESSION: No evidence of pulmonary embolism Reviewed, dictated and finalized at [facility]. Reviewed, dictated and finalized at location [facility].
--- NOTE | ~2020-11-21 | XR_ITS ---
EXAMINATION: XR chest 1V portable INDICATION: Left-sided chest pain TECHNIQUE: Portable AP chest at 1246 hours COMPARISON: 10/29/2020 FINDINGS: The lungs are free of acute opacities. There is no pleural effusion or pneumothorax. The ca rdiomediastinal silhouette is normal. IMPRESSION: 1. No acute cardiopulmonary abnormality. Reviewed, dictated and finalized at location [facility].
[2020-11-21 12:18] VITALS: BP 141/69; PULSE 80; RESP 16; TEMP 37; O2SAT 100
[2020-11-21 12:37] VITALS: BP 141/69; PULSE 80; RESP 18; TEMP 37; O2SAT 98
--- NOTE | 2020-11-21 12:47 | ECG_ITS ---
Measurements Intervals Fabius Rate: 73 P: -42 NM: 143 QRS: -7 QRSD: 93 T: 21 QT: 380 QTc: 419 Interpretive Statements SINUS RHYTHM BASELINE ARTIFACT- I, II NORMAL ECG Electronically Signed On 11-21-2020 13:27:03 CDT by Amrik Meraz D.O.
--- NOTE | 2020-11-21 13:15 | ED.GENADULT ---
HPI - General Adult General Chief complaint: Upper Respiratory Infection Stated complaint: COUGHING, UNABLE TO TAKE DEEP BREATH Time Seen by Provider: 11/21/20 12:42 Source: patient Mode of arrival: ambulatory Limitations: no limitations History of Present Illness HPI narrative: Patient complaining of left lower ribs pain, making unable to take deep breath for the last 2 to 3 days. Patient also complaining of productive cough of clear phlegm over the last few days. Patient is fully vaccinated for COVID-19, denies any fever, chills, nausea, vomiting, shortness of breath. Pain gets worse with deep breathing, better with short of breath. Related Data Home Medications Medication Instructions Recorded Confirmed allopurinol 100 mg PO DAILY 10/29/20 10/29/20 Allergies Allergy/AdvReac Type Severity Reaction Status Date / Time No Known Allergies Allergy Verified 11/21/20 12:39 Review of Systems Review of Systems: CONSTITUTIONAL: Denies fever, chills, or sweats. EYES: Denies visual changes, redness, or discharge. ENT: Denies rhinorrhea, congestion, sore throat, or otalgia. CARDIOVASCULAR: Denies chest pain, palpitations, or edema. RESPIRATORY: Denies cough or dyspnea. GASTROINTESTINAL: Denies abdominal pain, nausea, vomiting, or diarrhea. GENITOURINARY: Denies dysuria or hematuria. SKIN: Denies rash or itching. MUSCULOSKELETAL: Denies back pain, joint pain, or myalgia. NEUROLOGIC: Denies headache, numbness, or weakness. PSYCHIATRIC: Denies anxiety or depression. [facility] Past Medical History Medical History Benign hypertension Chronic lymphocytic leukemia dx spring CTS (carpal tunnel syndrome) Family hx of colon cancer Gout Impaired fasting glucose Positive CLAUDIA (antinuclear antibody) Prediabetes Family History Family History Father Alcoholism Carcinoma of colon Hypertension Family hx of colon cancer Mother Diabetes mellitus Heart disease Glaucoma Hypertension Thyroid disease Sibling Diabetes mellitus Alcoholism Lymphoma Glaucoma Hypertension Thyroid disease Cerebrovascular accident Social History Social History Smoking status: Never smoker Tobacco type: smokeless tobacco Smokeless tobacco user: chewing tobacco Alcohol intake: current Drinks per week: 6 Substance use: never Gender identity (if verbalized by the patient): Male Spiritual care concerns: No Exam Narrative: General appearance: Well-developed, well-nourished Skin: Normal color Head: Normocephalic, nontraumatic Eyes: Clear conjunctiva ENT: Oropharynx normal, ears normal, nose normal Neck: Supple, nontender Chest and respiratory: Airway patent, no respiratory distress, no accessory muscle use Heart: Regular rate/rhythm Abdomen: Soft, nontender, no organomegaly, quiet bowel sounds Vascular: Normal peripheral pulses, normal capillary refill. 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
[2020-11-21 13:48] LABS: Hemoglobin 9.9 g/dL (14.0-18.0); Mean Corpuscular HGB Conc 31.9 g/dl (32-36); Mean Corpuscular Hemoglobin 29.1 pg (26-34); Mean Corpuscular Volume 91.2 fl (80-100); Mean Platelet Volume 8.7 fl (7.4-10.4); Platelet Count Result 339 k/mm3 (150-375); Red Cell Distribution Width 13.2 % (11.5-14.5); White Blood Count 38.5 K/mm3 (4.5-10.0)
[2020-11-21 13:59] LABS: Alanine Aminotransferase 31 U/L (4-50); Albumin Level 3.4 g/dL (3.5-5.1); Alkaline Phosphatase 47 U/L (38-126); Anion Gap 9 mmol/L (8-16); Aspartate Amino Transferase 35 U/L (17-59); Bilirubin,Total 0.4 mg/dL (0.2-1.3); Blood Urea Nitrogen 24 mg/dL (9-20); Calcium 8.7 mg/dL (8.4-10.2); Carbon Dioxide 24 mmol/L (22-30); Chloride 97 mmol/L (98-107); Estimated CRCL calculation 98 ml/min; Estimated Glomerular Filt Rate > 60; Glucose 172 mg/dL (65-110); Partial Thromboplastin Time 26.1 SECONDS (22.3-36.8); Potassium 4.5 mmol/L (3.4-5.0); Prothrombin Time 12.8 Seconds (11.1-14.7); Sodium 130 mmol/L (137-145)
[2020-11-21 14:02] LABS: D Dimer 2.89 ug/mL (<0.48)
[2020-11-21 14:03] LABS: Lymphocytes Absolute Manual 33.49 K/mm3 (1.1-4.5); Monocytes Absolute Manual 0.38 K/mm3 (0.1-0.90); Monocytes Percent Manual 1 % (3-9); Neutrophils Percent Manual 12 % (46-73); Total Cells Counted 100
[2020-11-21 14:04] LABS: Platelet Estimate Adequate (Adequate)
[2020-11-21 14:10] LABS: Troponin I < 0.012 ng/mL (0.000-0.034)
[2020-11-21 15:00] LABS: Add Urine Microscopic? YES; Appearance Urine Cloudy (Clear); Bilirubin Urine Negative (Negative); Blood Urine Negative (Negative); Color Urine Amber (Yellow); Glucose Urine UA Negative (Negative); Ketones Urine Negative (Negative); Leukocyte Esterase Ur Negative LEU/UL (Negative); Mucus Urine Rare /lpf; Nitrate Urine Negative (Negative); Protein Urine Negative (Negative); RBC Urine 0-2 /hpf (0-2); Specific Grav Ur 1.014 (1.001-1.035); Urobilinogen Urine Negative mg/dL (<2.0); WBC Urine 0-3 /hpf
[2020-11-21 15:38] VITALS: BP 149/76; PULSE 90; RESP 22; TEMP 37; O2SAT 98
[2020-11-21 16:49] VITALS: BP 138/78; PULSE 82; RESP 20; O2SAT 99
== END 2020-11-21 16:51 | disposition home or self-care (01) ==
PROVIDERS: Emergency Provider Emergency Medicine; PCP Family Medicine
DX: C91.10 Chronic lymphocytic leukemia of B-cell type not having achieved remission (principal); R05 Cough; R10.9 Unspecified abdominal pain; I10 Essential (primary) hypertension; R73.03 Prediabetes; F17.220 Nicotine dependence, chewing tobacco, uncomplicated
CPT/HCPCS: 36415; 71045; 71275; 74177; 80053; 81001; 84484; 85025; 85380; 85610; 85730; 93005; 99284; Q9967

== ENCOUNTER → 2020-12-30 16:18 | Outpatient (CLI) | payer OTHER, SELFPAY ==
--- NOTE | ~2020-12-30 | XR_ITS ---
XR chest 2V 12/30/2020 16:48 Indication: Polyarthralgias Procedure: 2 view chest Comparison: Comparison to multiple prior studies sequentially, with oldest reviewed study dated 10/29. Findings: There are interstitial infiltrates of the left lower lobe. There is blunting of the left la teral costophrenic recess. Heart size normal. Right lung clear. No edema or pneumothorax. Impression: 1: Linear infiltrates of the left mid and lower lung peripherally which may represent atelectasis or fibrosis. Reviewed, dictated and finalized at location [facility]. Impression: 1: Linear infiltrates of the left mid and lower lung peripherally which may rep resent atelectasis or fibrosis.
--- NOTE | ~2020-12-30 | XR_ITS ---
EXAMINATION: XR hand BI arthritis min 3V DATE: 12/30/2020 16:48 INDICATION: Polyarthralgia. TECHNIQUE: 4 views of right hand and 4 views of left hand on a total of 7 radiographs were obtained. COMPARISON: Bilateral hand radiographs 10/29/2020 FINDINGS: RIGHT HAND: Bone alignment is normal. No fracture. There is moderate osteoarthritis of third metacarp ophalangeal joint and mild osteoarthritis of first metacarpophalangeal joint and fifth proximal inter phalangeal joint. LEFT HAND: Bone alignment is normal. No fracture. There is severe osteoarthritis of radiolunate joint and mild osteoarthritis of first metacarpophalangeal joint. IMPRESSION: 1. Polyarticular osteoarthritis. Reviewed, dictated and finalized at location [facility].
== END ==
PROVIDERS: PCP Family Medicine
DX: M19.041 Primary osteoarthritis, right hand (principal); M19.042 Primary osteoarthritis, left hand; R91.8 Other nonspecific abnormal finding of lung field
CPT/HCPCS: 71046; 73130

== ENCOUNTER 2021-01-02 08:28 | Outpatient (CLI) | payer OTHER, SELFPAY ==
--- NOTE | 2021-01-02 11:00 | NEURO_ITS ---
Impression: # Complains of numbness of hands. Patient does have underlying leukemia. # Severe left Carpal Tunnel Syndrome. # Moderate right Carpal Tunnel Syndrome. # Abnormal needle/EMG exam. # Clinical correlation recommended. Nerve Conduction Studies Anti Sensory Summary Table Stim Site NR Peak (ms) P-T Amp (?V) Site1 Site2 Delta-P (ms) Dist (cm) Patrick (m/s) Left Median Anti Sensory (2-3nd Digit) Wrist 7.2 14.3 Wrist 2-3nd Digit 7.2 14.0 19 Wrist 7.6 5.7 Wrist 2-3nd Digit 7.2 14.0 19 Right Median Anti Sensory (2-3nd Digit) Wrist 6.9 24.2 Wrist 2-3nd Digit 6.9 14.0 20 Wrist 7.0 47.0 Wrist 2-3nd Digit 6.9 14.0 20 Left Radial Anti Sensory (Base 1st Digit) Wrist 2.3 31.3 Wrist Base 1st Digit 2.3 0.0 Right Radial Anti Sensory (Base 1st Digit) Wrist 2.8 15.3 Wrist Base 1st Digit 2.8 0.0 Left Ulnar Anti Sensory (5th Digit) Wrist 3.2 35.1 Wrist 5th Digit 3.2 14.0 44 Right Ulnar Anti Sensory (5th Digit) Wrist 3.1 54.5 Wrist 5th Digit 3.1 14.0 45 Motor Summary Table Stim Site NR Onset (ms) O-P Amp (mV) Site1 Site2 Delta-0 (ms) Dist (cm) Patrick (m/s) Left Median Motor (Abd Poll Brev) Wrist 7.1 0.9 Elbow Wrist 4.5 26.0 58 Elbow 11.6 4.5 Right Median Motor (Abd Poll Brev) Wrist 4.7 2.4 Elbow Wrist 7.2 29.0 40 Elbow 11.9 2.7 Left Ulnar Motor (Abd Dig Minimi) Wrist 3.3 5.6 A Elbow Wrist 5.6 30.0 54 A Elbow 8.9 4.4 Right Ulnar Motor (Abd Dig Minimi) Wrist 2.7 6.1 A Elbow Wrist 6.0 30.0 50 A Elbow 8.7 4.8 F Wave Studies NR F-Lat (ms) L-R F-Lat (ms) Left Median (Mrkrs) (Abd Poll Brev) 30.53 0.58 Right Median (Mrkrs) (Abd Poll Brev) 31.11 0.58 Left Ulnar (Mrkrs) (Abd Dig Min) 31.08 1.48 Right Ulnar (Mrkrs) (Abd Dig Min) 32.56 1.48 EMG Side Muscle Nerve Root Ins Act Fibs Amp Dur Recrt Comment Right 1stDorInt Ulnar C8-T1 Nml Nml Nml Nml Nml Right Ext Indicis Radial (Post Int) C7-8 Nml Nml Nml Nml Nml Right Ext Digitorum Radial (Post Int) C7-8 Nml Nml Nml Nml Nml Right BrachioRad Radial C5-6 Nml Nml Nml Nml Nml Right PronatorTeres Median C6-7 Nml Nml Nml Nml Nml Right Abd Poll Brev Median C8-T1 Nml Nml Incr >12ms Reduced Left 1stDorInt Ulnar C8-T1 Nml Nml Nml Nml Nml Left Ext Indicis Radial (Post Int) C7-8 Nml Nml Nml Nml Nml Left Ext Digitorum Radial (Post Int) C7-8 Nml Nml Nml Nml Nml Left BrachioRad Radial C5-6 Nml Nml Nml Nml Nml Left PronatorTeres Median C6-7 Nml Nml Nml Nml Nml Left Abd Poll Brev Median C8-T1 Nml Nml Incr >12ms Reduced MTDD
== END 2021-01-02 08:29 | disposition home or self-care (01) ==
PROVIDERS: PCP Family Medicine; Visit Provider Family Medicine
DX: G56.03 Carpal tunnel syndrome, bilateral upper limbs (principal)
CPT/HCPCS: 95886; 95911

== ENCOUNTER 2021-04-14 00:19 | Day surgery (SDC) | payer OTHER, SELFPAY ==
[2021-04-02 16:09] VITALS: BMI 23.5
--- NOTE | 2021-04-13 17:34 | PM.HPGS ---
History of Present Illness History of Present Illness Consent: Risks, benefits, and alternatives have been discussed and questions answered. Patient agrees to proceed with procedure. Chief complaint: family hx of colon ca, neoplasm screening Narrative: Kalen Valle is a 65 year old male referred for colon cancer screening. His father had colon cancer Review of Systems Review of Systems: All systems reviewed & are unremarkable except as noted in HPI and below PMFSH Past Medical History Medical History Benign hypertension Chronic lymphocytic leukemia dx spring CTS (carpal tunnel syndrome) Family hx of colon cancer Fever Gout Impaired fasting glucose Lupus (systemic lupus erythematosus) Person under investigation for COVID-19 Positive CLAUDIA (antinuclear antibody) Prediabetes Family History Family History Father Alcoholism Carcinoma of colon Hypertension Family hx of colon cancer Mother Diabetes mellitus Heart disease Glaucoma Hypertension Thyroid disease Sibling Diabetes mellitus Alcoholism Lymphoma Glaucoma Hypertension Thyroid disease Cerebrovascular accident Social History Social History Smoking status: Never smoker Tobacco type: smokeless tobacco Smokeless tobacco user: chewing tobacco Alcohol intake: former Drinks per week: 6 Alcohol use details: alcohol abuse prior to October 2020 Substance use: never Substance use type: does not use Living arrangements: with family Gender identity (if verbalized by the patient): Male Spiritual care concerns: No Meds Home Medications and Allergies Home Medications Medication Instructions Recorded Confirmed Type meloxicam 15 mg tablet See Rx Instructions .ROUTE 08/13/20 04/02/21 Rx .COMPLEX #90 tablet metoprolol succinate 25 mg See Rx Instructions .ROUTE 11/18/20 04/02/21 Rx tablet,extended release 24 hr .COMPLEX #90 tablet albuterol sulfate 90 mcg/actuation 2 inh INHALATION Q4H PRN #6.7 g 01/20/21 04/02/21 Rx aerosol inhaler polysaccharide iron complex 150 mg 150 mg PO DAILY@0800 30 Days #30 02/03/21 04/02/21 Rx iron capsule cap allopurinol 100 mg tablet See Rx Instructions .ROUTE 03/21/21 04/02/21 Rx .COMPLEX #180 tablet citalopram 20 mg PO DAILY 04/02/21 04/02/21 History hydroxychloroquine 200 mg PO DAILY 04/02/21 04/02/21 History latanoprost 1 drp EACH EYE DAILY 04/02/21 04/02/21 History Allergies Allergy/AdvReac Type Severity Reaction Status Date / Time No Known Allergies Allergy Verified 04/14/21 08:11 Exam Resp: Auscultation: clear to auscultation bilaterally Cardio: Rate: regular rate Rhythm: regular rhythm GI: GI Palp: Yes Soft to palpation and No Tenderness to palpation present (GI) Assessment and Plan Assessment and plan (1) Colon cancer screening: Code(s): Z12.11 - Encounter for screening for malignant neoplasm of colon Status: Acute Assessment and Plan: Please inform patient that the polyp(s) was/were the 'pre'-cancerous type. Colonoscopy should be repeated within 5 years
--- NOTE | 2021-04-14 07:33 | WPDANESEPPF ---
Anes - Initial Pre Proc Eval Procedure: Operation Date: 04/14/21 09:00 Proposed Procedures p Screening Colonoscopy - Jamshid Salas MD Date/Time: 04/14/21 07:33 Surgeon: Jamshid Salas MD Pre Op Diagnosis: family hx of colon ca, neoplasm screening Patient Data Age: 65 Gender: M Height: 1.7 m Weight: 68.2 kg Allergies Allergy/AdvReac Type Severity Reaction Status Date / Time No Known Allergies Allergy Verified 04/14/21 08:11 Home Medications Medication Instructions Recorded Confirmed Type meloxicam 15 mg tablet See Rx Instructions .ROUTE 08/13/20 04/02/21 Rx .COMPLEX #90 tablet metoprolol succinate 25 mg See Rx Instructions .ROUTE 11/18/20 04/02/21 Rx tablet,extended release 24 hr .COMPLEX #90 tablet albuterol sulfate 90 mcg/actuation 2 inh INHALATION Q4H PRN #6.7 g 01/20/21 04/02/21 Rx aerosol inhaler polysaccharide iron complex 150 mg 150 mg PO DAILY@0800 30 Days #30 02/03/21 04/02/21 Rx iron capsule cap allopurinol 100 mg tablet See Rx Instructions .ROUTE 03/21/21 04/02/21 Rx .COMPLEX #180 tablet citalopram 20 mg PO DAILY 04/02/21 04/02/21 History hydroxychloroquine 200 mg PO DAILY 04/02/21 04/02/21 History latanoprost 1 drp EACH EYE DAILY 04/02/21 04/02/21 History Patient hx anesthesia problems: none Family hx anesthesia problems: none Results Review: All pre-operative results and documents have been reviewed as part of the pre-operative evaluation. [facility] Past Medical History Medical History (Updated 04/14/21 @ 07:34 by Dakota Valentine DO) Benign hypertension Chronic lymphocytic leukemia dx spring CTS (carpal tunnel syndrome) Family hx of colon cancer Fever Gout Impaired fasting glucose Lupus (systemic lupus erythematosus) Person under investigation for COVID-19 Positive CLAUDIA (antinuclear antibody) Prediabetes Family History Family History Father Alcoholism Carcinoma of colon Hypertension Family hx of colon cancer Mother Diabetes mellitus Heart disease Glaucoma Hypertension Thyroid disease Sibling Diabetes mellitus Alcoholism Lymphoma Glaucoma Hypertension Thyroid disease Cerebrovascular accident Social History Social History Smoking status: Never smoker Tobacco type: smokeless tobacco Smokeless tobacco user: chewing tobacco Alcohol intake: former Drinks per week: 6 Alcohol use details: alcohol abuse prior to October 2020 Substance use: never Substance use type: does not use Living arrangements: with family Gender identity (if verbalized by the patient): Male Spiritual care concerns: No Anes - Eval Final PreProcedure Day of Procedure 04/14/21 07:33 Patient weight: normal Heart: regular rate and rhythm Lungs: clear to auscultation and normal air movement Airway: Mallampati scale class II Neurological: alert and oriented Last oral intake: >/= 8 hours ASA classification: III Emergent: no Anesthetic plan: proceed Anesthesia type and monitoring: general GIVS and standard monitoring Results Review: All pre-operative results and documents have been reviewed as part of the pre-operative evaluation. Informed Consent: The patient's anesthetic plan and its attendant risks and benefits were discussed with the patient/family/POA. Questions were solicited and answers provided to the satisfaction of the patient/family/POA.
[2021-04-14 08:12] VITALS: BP 146/64; PULSE 89; RESP 18; TEMP 36.3; O2SAT 100
[2021-04-14] MEDS: LACTATED RINGERS 1,000 ML 150 ML IV CONT (08:20)
[2021-04-14 09:20] VITALS: BP 95/54; PULSE 65; RESP 18; O2SAT 94
[2021-04-14 09:30] VITALS: BP 111/62; PULSE 63; RESP 18; O2SAT 100
[2021-04-14 09:38] VITALS: BP 144/70; PULSE 66; RESP 18; O2SAT 100
== END 2021-04-14 09:48 | disposition home or self-care (01) ==
PROVIDERS: PCP Family Medicine; Visit Provider Internal Medicine Gastroenterology
PROC: 0DJD8ZZ Inspection of Lower Intestinal Tract, Via Natural or Artificial Opening Endoscopic (ICD-10-PCS; CPT 45378; principal; 2021-04-14 09:00)
DX: Z12.11 Encounter for screening for malignant neoplasm of colon (principal); Z80.0 Family history of malignant neoplasm of digestive organs; I10 Essential (primary) hypertension; C91.10 Chronic lymphocytic leukemia of B-cell type not having achieved remission; M10.9 Gout, unspecified; M32.9 Systemic lupus erythematosus, unspecified; R73.03 Prediabetes; R76.0 Raised antibody titer; Z79.51 Long term (current) use of inhaled steroids; Z87.891 Personal history of nicotine dependence
CPT/HCPCS: 45378; J2704; J7120

== ENCOUNTER → 2021-04-28 15:33 | Outpatient (CLI) | payer OTHER, MEDICARE, SELFPAY ==
--- NOTE | ~2021-04-28 | CT_ITS ---
EXAMINATION: CT diagnostic chest wo con DATE: 04/28/2021 16:12 INDICATION: Positive double stranded DNA test. Atelectasis versus fibrosis. TECHNIQUE: Computed tomography (CT) of the chest was performed without intravenous contrast. The dose -length product was 204.79 mGy-cm. Automated exposure control and iterative reconstruction technique were employed. COMPARISON: CT dated 11/21/2020 FINDINGS: Small pleural effusions, right greater than left. Trace pericardial effusion. Heart size no rmal. There is atherosclerosis of the aorta and coronary arteries. There is bilateral axillary lympha denopathy. No significant mediastinal or hilar lymphadenopathy. Calcified granuloma left upper lobe. No pneumothorax. No endobronchial lesions. There is bilateral subsegmental atelectasis of the lung ba ses. There are healed right lower rib fractures. Mild thoracic spondylosis. IMPRESSION: 1. Small pericardial effusions with underlying bibasilar atelectasis. 2: Bilateral axillary lymphadenopathy, nonspecific. These are most likely reactive, although other co nsiderations such as metastatic disease and lymphoma should be considered in the appropriate clinical setting. Reviewed, dictated and finalized at location [facility]. WORK SPECIALIST IMPRESSION: 1. Small pericardial effusions with underlying bibasilar atelectasis. 2: Bilateral axillary lymphadenopathy, nonspecific. These are most likely react serafin, although other considerations such as metastatic disease and lymphoma shou ld be considered in the appropriate clinical setting.
--- NOTE | ~2021-04-28 | XR_ITS ---
XR knee RT min 4V 04/28/2021 16:20 Indication: Right knee pain Procedure: 4 views right knee Comparison: No prior studies for comparison. Findings: No fracture, subluxation or dislocation. There is a bipartite patella. Small joint effusion . No significant joint space narrowing. Impression: 1: No acute bone or joint abnormality. Reviewed, dictated and finalized at location [facility]. GEMENT PSYCHOLOGIST Impression: 1: No acute bone or joint abnormality.
--- NOTE | ~2021-04-28 | XR_ITS ---
XR knee LT min 4V 04/28/2021 16:20 INDICATION: Polyarthritis PROCEDURE: 5 views left knee COMPARISON: No prior studies for comparison. FINDINGS: Fracture, dislocation or subluxation is not identified. The soft tissues appear within norm al limits. No foreign bodies are identified. IMPRESSION: 1: NO ACUTE BONE OR JOINT ABNORMALITY IDENTIFIED. Reviewed, dictated and finalized at location B. 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
== END ==
PROVIDERS: PCP Family Medicine
DX: M13.0 Polyarthritis, unspecified (principal); R76.8 Other specified abnormal immunological findings in serum; I31.3 Pericardial effusion (noninflammatory)
CPT/HCPCS: 71250; 73564

== ENCOUNTER → 2021-08-06 10:13 | Outpatient (CLI) | payer OTHER, SELFPAY ==
--- NOTE | ~2021-08-06 | XR_ITS ---
EXAMINATION: XR chest 2V 08/06/2021 10:29 INDICATION: Stridor PROCEDURE: 2 view chest COMPARISON: Comparison to multiple prior studies sequentially, with oldest reviewed study dated 02/06. FINDINGS: The lungs are clear. The cardiomediastinal silhouette is within normal limits. There are no pleural effusions. There is no pneumothorax suspected. IMPRESSION: 1: NO ACUTE CARDIOPULMONARY DISEASE. Reviewed, dictated and finalized at location A.
== END ==
PROVIDERS: PCP Family Medicine; Visit Provider Family Medicine
DX: R06.1 Stridor (principal)
CPT/HCPCS: 71046

== ENCOUNTER 2021-08-06 13:12 | Outpatient (CLI) | payer OTHER, SELFPAY ==
--- NOTE | 2021-08-06 13:00 | ECHO_ITS ---
Patient Info Name: Kalen Valle Age: 65 years : 1955 Gender: Male Ht: 66 in Wt: 150 lbs BSA: 1.79 m2 HR: 62 bpm BP: 160 / 84 mmHg Heart Rhythm: Sinus Rhythm Technical Quality: Good Exam Date: 08/06/2021 1:51 PM Exam Location: [facility] Pul[facility] Patient Status: Outpatient Admit Date: 08/06/2021 Staff Ordering Physician: Anup Millan MD [employer] Orthodontist: Tamika Haney RDCS Attending Provider: Anup Millan MD Referring Physician: Monty KAPLAN; Exam Type: CA echo doppler color flow Study Info Indications R01.1 - Cardiac murmur, unspecified Complete two-dimensional, color flow and Doppler transthoracic echocardiogram is performed. Summary 1. Complete two-dimensional, color flow and Doppler transthoracic echocardiogram is performed. 2. Left ventricular chamber dimension is normal. 3. Left ventricular systolic function is normal, estimated at 60-65%. 4. There is mildly increased left ventricular wall thickness. 5. The left ventricular diastolic function is grade I diastolic dysfunction. 6. E/e' 10 is mildly elevated. 7. Mild right ventricular hypertrophy. 8. The mitral valve has mildly calcified annulus. 9. There is mild tricuspid valve regurgitation. 10. No pulmonary hypertension, estimated pulmonary arterial systolic pressure is 34 mmHg. Left Ventricle E/e' 10 is mildly elevated. Left ventricular chamber dimension is normal. Left ventricular systolic function is normal, estimated at 60-65%. There is mildly increased left ventricular wall thickness. The left ventricular diastolic function is grade I diastolic dysfunction. Right Ventricle Mild right ventricular hypertrophy. Right ventricular chamber dimension is normal. Right ventricular systolic function is normal. Left Atria Left atrial chamber dimension is normal. Right Atria Right atrial chamber dimension is normal. Aortic Valve The aortic valve is trileaflet. There is no aortic valve stenosis. There is no aortic valve regurgitation. Pulmonic Valve There is no pulmonic regurgitation. Mitral Valve The mitral valve has mildly calcified annulus. There is no mitral valve stenosis. There is no mitral valve regurgitation. Tricuspid Valve There is mild tricuspid valve regurgitation. No pulmonary hypertension, estimated pulmonary arterial systolic pressure is 34 mmHg. Pericardium/Pleural There is no pericardial effusion. Inferior Vena Cava Normal inferior vena cava with >50% collapse upon inspiration consistent with normal right atrial pressure, 5 mmHg. Aorta The aortic root size at the sinus of Valsalva is normal. Left Ventricular Outflow Tract Name Value Normal LVOT 2D LVOT Diameter 2.1 cm LVOT Doppler LVOT Peak Gradient 4 mmHg LVOT Mean Gradient 2 mmHg LVOT VTI 22 cm LVOT VTI/AV VTI Ratio 1.1 LVOT Stroke Volume 76 ml LVOT CO 14.6 l/min LVOT CI 8.1 l/min/m2 Pulmonic Va
== END 2021-08-06 13:13 | disposition home or self-care (01) ==
PROVIDERS: PCP Family Medicine; Visit Provider Family Medicine
DX: R01.1 Cardiac murmur, unspecified (principal); I36.1 Nonrheumatic tricuspid (valve) insufficiency
CPT/HCPCS: 93306

== ENCOUNTER → 2021-09-23 12:07 | Outpatient (CLI) | payer MEDICARE, OTHER, SELFPAY ==
--- NOTE | ~2021-09-23 | MR_ITS ---
EXAMINATION: MR foot RT wo/w con DATE: 09/23/2021 13:28 INDICATION: Right foot osteomyelitis with chronic enlarging ulcer at the right second toe. TECHNIQUE: Magnetic resonance imaging (MRI) of the right fore/mid foot was performed without and with 14 mL Multihance intravenous contrast. Sequences included sagittal T1-weighted FSE, sagittal fluid s ensitive FSE STIR, coronal PD-weighted FS FSE, coronal T1-weighted FSE, axial T1-weighted FS FSE, axi al T1-weighted FSE, axial PD-weighted FSE and axial, sagittal and coronal T1-weighted FS FSE . COMPARISON: None FINDINGS: Hallux valgus with moderate osteoarthritis at the first metatarsophalangeal joint. Bunion including h ypertrophic and erosive changes at the medial head of the first metatarsal. Alignment is otherwise no rmal. There is suboptimal fat saturation in the region of the toes which limits assessment of fluid s ignal and enhancement on the fat-saturated images. There is soft tissue swelling and edema at the lauren mil/medial aspect of the second toe. There does appear to be mild increased fluid signal in the secon d middle phalanx and at the head of the proximal phalanx and the fluid sensitive STIR images. Normal T1 marrow fat signal the bones of the visualized fore and midfoot. Specifically no loss of T1 fat sig nal in the phalanges of the second toe to suggest osteomyelitis. Additional mild polyarticular osteoa rthritis at multiple joints in the mid and forefoot. Physiologic amount fluid in the joint spaces. No joint effusions or abscess. Visualized portions of the flexor and extensor tendons are normal. Intri nsic musculature of the foot is unremarkable. IMPRESSION: 1. Mild edema at the second middle phalanx and at the head of the proximal phalanx which could be vicky ctive or very early osteomyelitis with no geographic loss of T1 fat signal to more specifically sugge st osteomyelitis. Assessment of fluid signal and enhancement at this location is limited and many of the sequences by poor fat saturation. Recommend correlation with plain radiographs of the second toe to assess for complementary assessment of cortical integrity. Reviewed, dictated and finalized at location A. IMPRESSION: 1. Mild edema at the second middle phalanx and at the head of the proximal phal anx which could be reactive or very early osteomyelitis with no geographic loss of T1 fat signal to more specifically suggest osteomyelitis. Assessment of flu id signal and enhancement at this location is limited and many of the sequences by poor fat saturation. Recommend correlation with plain radiographs of the se cond toe to assess for complementary assessment of cortical integrity.
[2021-09-23 12:45] LABS: Estimated Glomerular Filt Rate > 60
== END ==
PROVIDERS: PCP Family Medicine
DX: M86.9 Osteomyelitis, unspecified (principal)
CPT/HCPCS: 73720; A9577

== ENCOUNTER → 2021-10-27 13:06 | Outpatient (CLI) | payer MEDICARE, OTHER, SELFPAY ==
--- NOTE | ~2021-10-27 | MR_ITS ---
EXAMINATION: MR foot RT wo/w con DATE: 10/27/2021 14:27 INDICATION: Toe ulcer at the right foot TECHNIQUE: Magnetic resonance imaging (MRI) of the right fore/mid foot was performed without and with 15 mL Multihance intravenous contrast. Sequences included axial, sagittal and coronal T1-weighted FS E, axial T2-weighted FS FSE, coronal PD-weighted FS FSE, axial, sagittal and coronal fluid sensitive FSE STIR, axial T1-weighted FS FSE and postcontrast axial, sagittal and coronal T1-weighted FS FSE, a nd axial PD-weighted FSE. COMPARISON: 09/23/2021 FINDINGS: 40 degrees hallux valgus with moderate osteoarthritis at the first metatarsophalangeal joint. Associa estuardo bunion with hypertrophic change at the medial head of the first metatarsal. Alignment is otherwis e normal. Again seen is nonspecific soft tissue edema and nonmasslike enhancement at the right second toe. There is marrow edema and enhancement at the second middle phalanx and head of the second proxi mal phalanx. No geographic loss of T1 hyperintense marrow fat signal to more specifically suggest ost eomyelitis or additional mild osteoarthritis at many of the remaining joints in the mid and forefoot. No joint effusions, abscess or other abnormal fluid collections. Flexor and extensor tendons are nor mal with no tenosynovitis. Lisfranc ligament complex as well as the collateral ligament complex at th e metatarsophalangeal and interphalangeal joints appear normal. Intrinsic musculature of the foot is unremarkable. IMPRESSION: 1. No significant interval change in mild marrow edema and enhancement at the second middle phalanx a nd head of the proximal phalanx without geographic loss of T1 hyperintense fat signal to more specifi walker suggest osteomyelitis. This could be either reactive or early osteomyelitis. Would again recomm end correlation with plain radiographs of the second toe to assess for any evidence of cortical erosi on. 2. Hallux valgus with moderate osteoarthritis at the first metatarsophalangeal joint. Reviewed, dictated and finalized at location A. IMPRESSION: 1. No significant interval change in mild marrow edema and enhancement at the s econd middle phalanx and head of the proximal phalanx without geographic loss o f T1 hyperintense fat signal to more specifically suggest osteomyelitis. This c ould be either reactive or early osteomyelitis. Would again recommend correlati on with plain radiographs of the second toe to assess for any evidence of corti kleber erosion. 2. Hallux valgus with moderate osteoarthritis at the first metatarsophalangeal joint.
== END ==
PROVIDERS: PCP Family Medicine
DX: L97.519 Non-pressure chronic ulcer of other part of right foot with unspecified severity (principal); M20.11 Hallux valgus (acquired), right foot; M19.071 Primary osteoarthritis, right ankle and foot
CPT/HCPCS: 73720; A9577

== ENCOUNTER 2022-08-22 14:38 | Emergency (ER) | payer MEDICARE, OTHER, SELFPAY ==
[2022-08-22] VITALS (37 sets, daily range): BP systolic 128–180; BP diastolic 53–104; PULSE 56–75; RESP 14–25; TEMP 36.5; O2SAT 95–100
--- NOTE | ~2022-08-22 | CT_ITS ---
EXAMINATION: CTA brain carotid DATE: 08/22/2022 20:53 CDT INDICATION: Dizziness. Unsteady gait. TECHNIQUE: Computed tomographic angiography (CTA) of the head was performed without and with 100 mL O mnipaque-350 intravenous contrast. CTA of the neck was performed with intravenous contrast. The dose- length product was 1788.28 mGy-cm. Maximum intensity projection and volume rendered 3D-reconstruction s were created by the technologist on a separate workstation. Automated exposure control and iterativ e reconstruction technique were employed. COMPARISON: MRI dated 11/01/[address] dated 10/31/2020. FINDINGS: HEAD CTA: Generalized atrophy. No acute intracranial hemorrhage, infarction, mass or mass effect. No ventriculomegaly or midline shift. Basilar cisterns are patent. There are scattered mild periventricu lar and subcortical white matter changes, most likely related to small vessel ischemic disease (micro angiopathy). Mild mucosal thickening of the ethmoid sinuses. Mastoids are pneumatized. No depressed s kull fractures. No acute large vessel intracranial occlusion. There is severe greater than 90% stenos is left vertebral artery at the level of the clivus. Additionally right vertebral artery ends in a po sterior inferior cerebellar artery. The severely diseased left vertebral artery is the dominant suppl y to the posterior circulation. Severely diseased left posterior cerebral artery is diffusely small c aliber proximally. There is severe atherosclerosis of the left internal carotid artery and the caroti d canal causing greater than 80% stenosis. The left supraclinoid left internal carotid artery is tresa rely calcified and likely has greater than 70% stenosis as well. There is severe atherosclerotic dise ase of the supraclinoid intracranial right internal carotid artery causing greater than 90% stenosis. There is also a more focal 50% stenosis of the cavernous portion of the distal right internal caroti d artery. Questionable 1.5 mm saccular aneurysm arising from the junction of the left A1 and A2 segme nts in the region of the anterior Mc cue communicating artery. Absent right P1 segment with a o rigin to the right posterior cerebral artery territory. Right posterior communicating artery is unrem arkable. NECK CTA: Prominent calcified atherosclerotic disease of the carotid bulb and proximal right internal carotid artery. There is moderate diffuse disease of the distal half of the right common carotid art javi causing about 50% stenosis with moderate diffuse disease of the distal half of the left common ca rotid artery. There is very 50% stenosis at the origin of the right subclavian artery. There is 40-50% stenosis of the proximal right internal carotid artery relative to normal distal yvette ry lumen diameter (NASCET criteria). There is 30% stenosis of the proximal left internal carotid yvette ry relative to normal distal artery lumen diameter. There is severe stenosis at the origin of the rig ht vertebral artery which is severely diminutive throughout its course in the neck compared with the left. IMPRESSION: 1: No acute intracranial abnormality. 2: Chronic age-related findings. Severe atherosclerosis of the intracranial arteries as described ab ove. 3: Atherosclerosis with 40-50% stenosis of the proximal right internal carotid artery. 4.: Atherosclerosis with 30% stenosis of the proximal left internal carotid artery. Reviewed, dictated and finalized at location A. IMPRESSION: 1: No acute intracranial abnormality. 2: Chronic age-related findings. Severe atherosclerosis of the intracranial ar teries as described above. 3: Atherosclerosis with 40-50% stenosis of the proximal right internal carotid artery. 4.: Atherosclerosis with 30% stenosis of the proximal left internal carotid ar jenn.
--- NOTE | ~2022-08-22 | XR_ITS ---
EXAMINATION: XR chest 1V portable 08/22/2022 15:23 INDICATION: Intermittent dizziness and weakness. Cough. PROCEDURE: AP portable chest COMPARISON: Comparison to multiple prior studies sequentially, with oldest reviewed study dated 10/29. FINDINGS: The lungs are clear. The cardiomediastinal silhouette is within normal limits. There are no pleural effusions. There is no pneumothorax suspected. IMPRESSION: 1: NO ACUTE CARDIOPULMONARY DISEASE. Reviewed, dictated and finalized at location A.
--- NOTE | 2022-08-22 14:49 | ECG_ITS ---
Measurements Intervals [place] Rate: 58 P: -48 CA: 178 QRS: -7 QRSD: 90 T: 41 QT: 403 QTc: 398 Interpretive Statements ECTOPIC ATRIAL BRADYCARDIA ABNORMAL ECG COMPARED TO ECG 11/21/2020 13:24:59 NO SIGNIFICANT CHANGES Electronically Signed On 08-23-2022 9:08:52 CDT by Brijesh Dickerson M.D.
[2022-08-22 15:10] LABS: Basophils Absolute Auto 0.1 K/mm3 (0.0-0.1); Basophils Percent Auto 0.1 % (0.2-1.2); Eosinophils Absolute Auto 0.4 K/mm3 (0-0.3); Eosinophils Percent Auto 0.7 % (0-4.4); Hemoglobin 12.2 g/dL (14.0-18.0); Immature Granulocyte Percent A 0.2 % (0-0.5); Lymphocytes Absolute Auto 47.08 K/mm3 (0.9-3.2); Lymphocytes Percent Auto 85.8 % (18.3-44.2); Mean Corpuscular HGB Conc 32.1 g/dl (32-36); Mean Corpuscular Hemoglobin 29.7 pg (26-34); Mean Corpuscular Volume 92.5 fl (80-100); Mean Platelet Volume 9.4 fl (7.4-10.4); Monocytes Absolute Auto 3.1 K/mm3 (0.1-0.6); Monocytes Percent Auto 5.6 % (2.6-8.5); Neutrophils Absolute Auto 4.2 K/mm3 (1.3-6.7); Neutrophils Percent Auto 7.6 % (45.5-73.1); Platelet Count Result 197 k/mm3 (150-375); Red Blood Count 4.11 M/mm3 (4.6-6.20)
[2022-08-22 15:20] LABS: Alanine Aminotransferase 22 U/L (6-50); Albumin Level 4.4 g/dL (3.5-5.1); Alkaline Phosphatase 80 U/L (38-126); Anion Gap 7 mmol/L (8-16); Aspartate Amino Transferase 31 U/L (17-59); Bilirubin,Total 0.4 mg/dL (0.2-1.3); Blood Urea Nitrogen 23 mg/dL (9-20); Calcium 8.7 mg/dL (8.4-10.2); Carbon Dioxide 27 mmol/L (22-30); Chloride 105 mmol/L (98-107); Estimated CRCL calculation 58 ml/min; Estimated Glomerular Filt Rate > 60; Glucose 102 mg/dL (65-110); Potassium 4.8 mmol/L (3.4-5.0); Sodium 139 mmol/L (137-145)
--- NOTE | 2022-08-22 15:23 | ED.DIZZY ---
HPI - Dizziness General Chief Complaint: Dizziness Stated Complaint: dizziness Time Seen by Provider: 08/22/22 14:52 Source: patient, family, RN notes reviewed and old records reviewed Mode of arrival: ambulatory Limitations: no limitations History of Present Illness HPI Narrative: THis is a 66 year old male with history of CLL, chronic alcohol abuse, gout, hypertension who who presents for evaluation of dizziness. Patient reports he has been dealing with URI symptoms for 1 week. He has also been having intermittent dizziness that he describes as feeling fainty . This initially only lasted a minute but over the past few days it occurring more frequently. His significant other reports patient is complaining of worsening dizziness today. His dizziness occurs with standing and walking. His significant other reports wide gait for 2 days. She states patient's heart rate has been low so he did not take his metoprolol today. He denies chest pain, shortnesss of breath, nausea, vomiting, fever or chills. She states he had similar episode 2 years ago but he was heavy alcohol drinker at that time. He does not drink anymore. Related Data Home Medications Medication Instructions Recorded Confirmed citalopram 20 mg tablet 20 mg PO DAILY 04/02/21 12/18/21 latanoprost 0.005 % eye drops 1 drp EACH EYE DAILY 04/02/21 12/18/21 Allergies Allergy/AdvReac Type Severity Reaction Status Date / Time No Known Allergies Allergy Verified 12/18/21 16:36 Review of Systems Constitutional: Constitutional: Denies weakness ENT: Reports dizziness Cardiovascular: Cardiovascular: Denies syncope, Denies rapid heart rate, Denies irregular heart rhythm, Denies leg edema and Denies dyspnea Respiratory: Respiratory: Denies chest congestion, Denies hemoptysis, Denies excessive phlegm production and Denies dyspnea Gastrointestinal: Gastrointestinal: Denies abdominal pain, Denies hematochezia, Denies diarrhea and Denies vomiting Genitourinary: Genitourinary: Denies hematuria, Denies dysuria, Denies penile discharge and Denies testicular pain Musculoskeletal: Musculoskeletal: Denies joint swelling, Denies loss of height and Denies muscle weakness Neurologic: Reports dizziness, Denies syncope, Denies focal weakness and Denies weakness PMFSH Past Medical History Medical History Amputation toe (~11/2021) Benign hypertension Chronic lymphocytic leukemia dx spring CTS (carpal tunnel syndrome) Family hx of colon cancer Fever Gout Impaired fasting glucose Lupus (systemic lupus erythematosus) Person under investigation for COVID-19 Positive CLAUDIA (antinuclear antibody) Prediabetes Family History Family History Father Alcoholism Carcinoma of colon Hypertension Family hx of colon cancer Mother Diabetes mellitus Heart disease Glaucoma Hypertension Thyroid disease Sibling Diabetes mellitus Alcoholism Lymphoma Glaucoma Hypertension Thyroid disease Cerebrovascular accident Social History Social History Social History: caffeine-coffee Smoking status: Never smoker Tobacco type: smokeless tobacco Smokeless tobacco user: chewing tobacco Alcohol intake: former Drinks per week: 6 Alcohol use details: alcohol abuse prior to October 2020 Substance use: never Substance use type: does not use Living arrangements: with family Gender identity (if verbalized by the patient): Male Spiritual care concerns: No Exam Const: General: no acute distress and alert Orientation/consciousness: patient oriented x3 HENMT: Head: normal to inspection Ears: TM's normal bilaterally Face and sinus: normal facial exam Mouth: Yes Normal oral and palatal mucosa present, Yes lip normal and Yes moist mucous membranes Eyes: Pupils: Equal, round and reacti
[2022-08-22 15:27] LABS: White Blood Count 54.9 K/mm3 (4.5-10.0)
[2022-08-22 15:28] LABS: Platelet Estimate Adequate (Adequate); Schistocytes None Seen (NORMAL); Smudge Cells MODERATE
[2022-08-22 15:29] LABS: Atypical Lymphocytes Present
[2022-08-22] MEDS: SODIUM CHLORIDE 0.9% IV 1,000 ML 999 ML IV CONT (15:29)
[2022-08-22 15:58] LABS: Magnesium 1.8 mg/dL (1.6-2.3)
[2022-08-22 16:04] LABS: Influenza A QL RT-PCR Negative (Negative); Influenza B QL RT-PCR Negative (Negative); SARS-CoV-2 RNA PCR Negative (Negative)
[2022-08-22 16:10] LABS: Troponin I < 0.012 ng/mL (0.000-0.034)
[2022-08-22 17:15] LABS: Appearance Urine Clear (Clear); Bilirubin Urine Negative (Negative); Blood Urine Negative (Negative); Color Urine Yellow (Yellow); Glucose Urine UA Negative (Negative); Ketones Urine Negative (Negative); Leukocyte Esterase Ur Negative LEU/UL (Negative); Nitrate Urine Negative (Negative); Protein Urine Negative (Negative); Urobilinogen Urine 0.2 mg/dL (<2.0); pH Urine 5.5 (5.0-9.0)
[2022-08-22 17:16] LABS: Add Urine Microscopic? NO
--- NOTE | 2022-08-22 20:58 | PC.NURSE ---
Patient has been accepted to [facility]. Waiting on a bed.
--- NOTE | 2022-08-22 22:29 | PC.NURSE ---
Patients states patient normally take celexa at night and asked if she could give patient his medication. This RN asked and she stated no. This nurse informed patients family member to not give his prescribed celexa at this time.
[2022-08-23] VITALS: PULSE 60; RESP 22
[2022-08-23 01:36] VITALS: BP 143/71; PULSE 59; RESP 15; O2SAT 100
[2022-08-23 02:32] VITALS: BP 127/53; PULSE 57; RESP 24; O2SAT 94
--- NOTE | 2022-08-23 03:00 | PC.NURSE ---
Called patients to inform her of patients room number and that he is on his way there now via EMS.
== END 2022-08-23 02:55 | disposition short-term general hospital (02) ==
PROVIDERS: Emergency Medicine; Emergency Provider General Practice; PCP Emergency Medicine
DX: I65.02 Occlusion and stenosis of left vertebral artery (principal); R42 Dizziness and giddiness; Z20.822 Contact with and (suspected) exposure to COVID-19; C91.10 Chronic lymphocytic leukemia of B-cell type not having achieved remission; I10 Essential (primary) hypertension; M10.9 Gout, unspecified; M32.9 Systemic lupus erythematosus, unspecified; R73.03 Prediabetes; Z89.419 Acquired absence of unspecified great toe; F17.220 Nicotine dependence, chewing tobacco, uncomplicated; I65.23 Occlusion and stenosis of bilateral carotid arteries
CPT/HCPCS: 36415; 70496; 70498; 71045; 80053; 81003; 83735; 84484; 85025; 87636; 93005; 96360; 99285; J7030; Q9967

== ENCOUNTER 2022-09-19 14:26 | Emergency (ER) | payer MEDICARE, OTHER, SELFPAY ==
--- NOTE | 2022-09-19 14:42 | PC.NURSE ---
Pt came to intake desk and states she does not want him triaged at this facility, she states she is going to drive to his hospital at [facility] where he has specialists. IV that EMS placed was removed and pt was assisted to car in [facility].
== END 2022-09-19 15:03 | disposition left against medical advice (07) ==
LOC: ANHED 14:51
PROVIDERS: PCP Emergency Medicine
DX: Z53.21 Procedure and treatment not carried out due to patient leaving prior to being seen by health care provider (principal)
CPT/HCPCS: 99199

== ENCOUNTER 2023-02-04 16:03 | Outpatient (CLI) | payer MEDICARE, OTHER, SELFPAY ==
[2023-02-04 16:17] LABS: Basophils Absolute Auto 0.1 K/mm3 (0.0-0.1); Basophils Percent Auto 0.1 % (0.2-1.2); Eosinophils Absolute Auto 0.3 K/mm3 (0-0.3); Eosinophils Percent Auto 0.4 % (0-4.4); Hematocrit 39.4 % (42.0-52.0); Hemoglobin 12.5 g/dL (14.0-18.0); Immature Granulocyte Absolute 0.14 K/mm3 (0.00-0.031); Immature Granulocyte Percent A 0.2 % (0-0.5); Lymphocytes Absolute Auto 80.37 K/mm3 (0.9-3.2); Lymphocytes Percent Auto 88.1 % (18.3-44.2); Mean Corpuscular HGB Conc 31.7 g/dl (32-36); Mean Corpuscular Hemoglobin 29.1 pg (26-34); Mean Corpuscular Volume 91.8 fl (80-100); Mean Platelet Volume 9.2 fl (7.4-10.4); Monocytes Absolute Auto 6.7 K/mm3 (0.1-0.6); Monocytes Percent Auto 7.3 % (2.6-8.5); Neutrophils Absolute Auto 3.7 K/mm3 (1.3-6.7); Neutrophils Percent Auto 3.9 % (45.5-73.1); Platelet Count Result 161 k/mm3 (150-375); Red Blood Count 4.29 M/mm3 (4.6-6.20); Red Cell Distribution Width 12.7 % (11.5-14.5)
[2023-02-04 16:21] LABS: White Blood Count 91.2 K/mm3 (4.5-10.0)
[2023-02-04 16:22] LABS: Atypical Lymphocytes Present; Platelet Estimate Adequate (Adequate); Schistocytes None Seen (NORMAL)
[2023-02-04 16:23] LABS: Smudge Cells PRESENT
[2023-02-04 17:12] LABS: Anion Gap 13 mmol/L (8-16); Blood Urea Nitrogen 35 mg/dL (9-20); Calcium 9.7 mg/dL (8.4-10.2); Carbon Dioxide 24 mmol/L (22-30); Chloride 104 mmol/L (98-107); Estimated Glomerular Filt Rate > 60; Glucose 116 mg/dL (65-110); Lactate Dehydrogenase 191 U/L (120-246); Potassium 4.3 mmol/L (3.4-5.0); Sodium 141 mmol/L (137-145)
[2023-02-04 17:15] LABS: Immunoglobulin A 160 mg/dL (70-400); Immunoglobulin G 971 mg/dL (700-1600); Immunoglobulin M 56 mg/dL (40-230)
[2023-02-06 20:13] LABS: Kappa\\Lambda Light Chains 1.87 (0.26-1.65)
[2023-02-08 14:54] LABS: Albumin 4.4 g/dL (3.8-4.8); Alpha 1 Globulin 0.3 g/dL (0.2-0.3); Alpha 2 Globulin 0.7 g/dL (0.5-0.9); Beta 1 Globulin 0.4 g/dL (0.4-0.6); Gamma Globulin 0.9 g/dL (0.8-1.7); Protein, Total 6.9 g/dL (6.1-8.1)
== END 2023-02-04 16:04 | disposition home or self-care (01) ==
LOC: ANHLAB 16:06
PROVIDERS: PCP Emergency Medicine; Visit Provider Internal Medicine Hematology & Oncology
DX: C91.10 Chronic lymphocytic leukemia of B-cell type not having achieved remission (principal)
CPT/HCPCS: 36415; 80048; 82784; 83615; 83883; 84155; 84165; 85025; 88184; 88237; 88271; 88275

== ENCOUNTER → 2023-02-12 08:40 | Outpatient (CLI) | payer MEDICARE, OTHER, SELFPAY ==
--- NOTE | ~2023-02-12 | CT_ITS ---
EXAMINATION: CT chest abdomen pelvis w con DATE: 02/12/2023 09:24 SOFTWARE PUBLISHER INDICATION: Chronic lymphocytic leukemia. TECHNIQUE: Computed tomography (CT) of the chest, abdomen, and pelvis was performed with 100 cc Omnip aque 350 intravenous contrast. The dose-length product was 551.42 mGy-cm. Automated exposure control and iterative reconstruction technique were employed. COMPARISON: CT dated 04/28/2021 FINDINGS: CHEST CT: No significant pleural or pericardial effusion. There is lymphadenopathy of the axilla, mediastinum. Heart size normal. There is a 2 mm left upper lobe nodule, likely benign. No endobronchial lesions. N o pneumothorax. ABDOMEN/PELVIS CT: There is lymphadenopathy in the portacaval, periaortic and aortocaval locations. There is lymphadenop athy of the left inguinal, external iliac and obturator lymph nodes. Study limited by motion. The modesta er, pancreas, adrenal glands and kidneys are unremarkable. Gallbladder is unremarkable. Moderate thor acic and lumbar spondylosis. Sclerotic lesion of the left ilium, likely benign bone island. Nonobstru ctive bowel gas pattern. IMPRESSION: 1. Widespread lymphadenopathy of the chest, abdomen and pelvis, consistent with known chronic lymphoc ytic leukemia. Reviewed, dictated and finalized at location B. WARE PUBLISHER IMPRESSION: 1. Widespread lymphadenopathy of the chest, abdomen and pelvis, consistent with known chronic lymphocytic leukemia.
[2023-02-12 09:05] LABS: Estimated Glomerular Filt Rate > 60
== END ==
PROVIDERS: PCP Internal Medicine Hematology & Oncology; Visit Provider Internal Medicine Hematology & Oncology
DX: C91.10 Chronic lymphocytic leukemia of B-cell type not having achieved remission (principal)
CPT/HCPCS: 71260; 74177; Q9967